=== PATIENT | female | born 1955 | race Caucasian/White ===

== ENCOUNTER 2017-10-24 12:03 | Inpatient (IN) | payer OTHER ==
[~2017-10-24] VITALS: Ht 154.9 cm; Wt 70.3 kg
[2017-10-24 12:17] VITALS: BP 158/75
[2017-10-24 12:28] LABS: PROTIME 108.5 Seconds (9.20-11.50)
[2017-10-24 12:30] LABS: INR 11.6
[2017-10-24 12:45] LABS: HEMATOCRIT 39.9 % (37.0-47.0); HEMOGLOBIN 13.4 gm/dL (12.0-15.0); MCHC 33.7 g/dL (28.0-37.0); MCV 79.9 fL (80.0-100.0); MPV 7.3 fl. (7.2-11.1); NUCLEATED RBCS 0 /100WBC; PLATELET COUNT* 388 thou/uL (150-400); RBC 4.99 mil/uL (4.20-5.00); RDW-CV 14.4 % (10.5-14.5); WBC 9.8 thou/uL (4.0-11.0)
[2017-10-24 12:52] LABS: CALCIUM 8.3 mg/dL (8.5-10.1)
[2017-10-24 12:53] LABS: POTASSIUM 2.3 mmol/L (3.5-5.1)
[2017-10-24 12:57] LABS: ALBUMIN 3.8 g/dL (3.4-5.0); TOTAL BILIRUBIN 0.2 mg/dL (<0.1-1.0); TOTAL PROTEIN 7.4 g/dL (6.4-8.2)
[2017-10-24 13:27] LABS: ABSOLUTE EOSINOPHILS 0.2 thou/uL (0.0-0.7); ABSOLUTE MONOCYTES 1.2 thou/uL (0.0-1.2); ABSOLUTE NEUTROPHILS 5.4 thou/uL (1.6-8.1); MYELOCYTES 1 %; PROMYELOCYTES 1 %
[2017-10-24 13:28] LABS: PLATELET ESTIMATE ADEQUATE
[2017-10-24 13:29] LABS: HYPOCHROMASIA Occasional
[2017-10-24] MEDS ORDERED: VENTOLIN HFA 1818 GM INH (14:49)
[2017-10-24] MEDS ORDERED: IMURAN 50MG TAB50 M1 PO (14:50)
[2017-10-24] MEDS ORDERED: VITAMINC500 PO (14:50)
[2017-10-24] MEDS ORDERED: ENTOCORT EC 3 MG3 MG PO (14:51)
[2017-10-24] MEDS ORDERED: SYMBICORT160 MCG/4. INH (14:52)
[2017-10-24] MEDS ORDERED: FLEXERIL PO (14:53)
[2017-10-24] MEDS ORDERED: BENTYL 10 MG CA10 MG PO (14:54)
[2017-10-24] MEDS ORDERED: ERGOCALCIF8000 UNIT/ PO (14:56)
[2017-10-24] MEDS ORDERED: CYMBALTA30 MG PO (14:56)
[2017-10-24] MEDS ORDERED: FERRETTS325 MG PO (14:57)
[2017-10-24] MEDS ORDERED: FISH OIL 1,001000 M2 PO (14:57)
[2017-10-24] MEDS ORDERED: LEVSIN0.125 MG PO (14:58)
[2017-10-24] MEDS ORDERED: HYDROCODONE-AP1 EAC6 PO (14:58)
[2017-10-24] MEDS ORDERED: SYNTHROID75 MCG PO (14:58)
[2017-10-24] MEDS ORDERED: ATIVAN0.5 MG PO (14:59)
[2017-10-24] MEDS ORDERED: MELATONIN3 MG PO (15:01)
[2017-10-24] MEDS ORDERED: MAGONATE54 MG/5 ML PO (15:01)
[2017-10-24] MEDS ORDERED: ASACOL HD800 MG PO (15:01)
[2017-10-24] MEDS ORDERED: TOPROL XL25 MG PO (15:02)
[2017-10-24] MEDS ORDERED: NASONEX17 GM NASAL (15:02)
[2017-10-24] MEDS ORDERED: SINGULAIR 10 MG10 M1 PO (15:02)
[2017-10-24] MEDS ORDERED: NITROGLYCERIN0.4 MG SUBLING (15:03)
[2017-10-24] MEDS ORDERED: ONDANSETRON HCL4 M2 PO (15:03)
[2017-10-24] MEDS ORDERED: OMEPRAZOLE 20 M20 M1 PO (15:03)
[2017-10-24] MEDS ORDERED: POTASSIUM20 PO (15:04)
[2017-10-24] MEDS ORDERED: ALDACTONE50 MG PO (15:04)
[2017-10-24] MEDS ORDERED: TRAZODONE HCL100 MG PO (15:05)
[2017-10-24] MEDS ORDERED: TOPAMAX50 MG PO (15:05)
[2017-10-24] MEDS ORDERED: COUMADIN 1MG TAB1 M1 PO (15:08)
[2017-10-24] MEDS ORDERED: VERAPAMIL E.R240 M1 PO (15:08)
[2017-10-24] MEDS ORDERED: PREDNISONE 10 M10 MG PO (15:09)
[2017-10-24 15:36] VITALS: BP 121/79
[2017-10-24 15:43] LABS: URINE BILIRUBIN NEGATIVE (Negative); URINE BLOOD NEGATIVE (Negative); URINE CLARITY CLEAR; URINE COLOR YELLOW; URINE GLUCOSE-RANDOM NEGATIVE (Negative); URINE KETONES NEGATIVE (Negative); URINE LEUKOCYTES-REFLEX TRACE (Negative); URINE NITRITE-REFLEX NEGATIVE (Negative); URINE PROTEIN NEGATIVE (Negative); URINE UROBILINOGEN 0.2 E.U./dl (0.2-1.0)
[2017-10-24 16:04] VITALS: BP 131/75
[2017-10-24 16:17] LABS: BACTERIA-REFLEX None Seen /HPF (None Seen); CASTS None Seen /LPF (None Seen); CRYSTALS None Seen /LPF (None Seen); SQUAMOUS 4-10 Moderate /LPF (0-3); URINE RBC None Seen /HPF (0-2); URINE WBC-REFLEX 0-5 Rare /HPF (0-5)
--- NOTE | 2017-10-24 17:32 | EKG ---
[place] [address] ELECTROCARDIOGRAM REPORT Name: KRISTAL FOX Room: [address] ADM IN .R.#: [id number] Admission: 10/24/17 Attend Phys: Otilia Mcguire MD Discharge: Date of : 53 Report #: [id number] THIS REPORT FOR: //name// [facility] ED Test Date: 2017-10-24 Test Time: 13:42:50 Pat Name: KRISTAL FOX Department: Room: [facility] Gender: F Video Systems Engineer: : 1955 Requested By: Nigel Hopkins Order Number: [id number] MD: Cm Bermeo Measurements Intervals [place] Rate: 69 P: 70 ID: [id number] QRS: 83 QRSD: 96 T: 73 QT: 395 QTc: 423 Interpretive Statements Sinus rhythm nonspecific t wave changes Borderline right axis deviation Compared to ECG 06/27/2008 14:08:16 Prolonged QT interval no longer present Electronically Signed On 10-24-2017 17:32:08 ACQUISITION COST ESTIMATOR by Cm Bermeo [email or web address] <ELECTRONICALLY SIGNED> By: Cm Bermeo MD, [facility] 10/24/17 1732 134 134 Cm Bermeo MD, [facility] /EPI
--- NOTE | 2017-10-24 18:19 | NUR ---
PATIENT CAME UP FROM THE ER TODAY VIA CART WITH SON IN STABLE CONDITION. VITAL SIGNS ARE STABLE ON ROOM AIR. PATIENT IS UP AD BILLY IN ROOM. COMPLAINS OF A HEADACHE. IV IN LEFT FOREARM SALINE LOCKED. ADMISSION ASSESSMENT AND EDICATION DONE UPON ARRIVAL. CALL LIGHT IS IN REACH, WILL CONTINUE TO MONITOR.
--- NOTE | 2017-10-24 21:00 | NUR ---
CONSULTED TO PLACE PICC FOR PT ON 3W ORDERED. CONSENT OBTAINED AND SIGNED. PT EXPLAINED RISK WELL BENEFIT OF PICC PLACEMENT TO INCLUDE RISK OF INFECTION AND DVT RISK. PT ASSESSED WITH ULTRASOUND AND JAIME BASILIC FOUND TO BE WIDELY PATENT. LINE TRIMMED TO 45 CM AND PLACED PER FACILITY POLICY WITH 2 CM EXTERNAL. LINE PLACEMENT CONFIRMED WITH 3CG AND RELEASED FOR IMMEDIATE USE. PT TOLERATED PROCEDURE WELL.
[2017-10-24 21:32] LABS: MAGNESIUM 1.6 mg/dL (1.8-2.4)
[2017-10-24 21:33] LABS: POTASSIUM 3.4 mmol/L (3.5-5.1)
[2017-10-24 21:41] LABS: INR 10.8
[2017-10-25] VITALS: BP 91/43
[2017-10-25 04:51] VITALS: BP 92/52
[2017-10-25 06:34] LABS: HEMATOCRIT 38.2 % (37.0-47.0); HEMOGLOBIN 12.6 gm/dL (12.0-15.0); MCH 26.9 pg (26.0-34.0); MCHC 33.1 g/dL (28.0-37.0); MCV 81.4 fL (80.0-100.0); MPV 7.4 fl. (7.2-11.1); RBC 4.69 mil/uL (4.20-5.00); RDW-CV 14.9 % (10.5-14.5); WBC 9.8 thou/uL (4.0-11.0)
[2017-10-25 06:42] LABS: PROTIME 61.3 Seconds (9.20-11.50)
[2017-10-25 06:43] LABS: INR 6.5
[2017-10-25 06:46] LABS: ALBUMIN 3.1 g/dL (3.4-5.0); CALCIUM 8.1 mg/dL (8.5-10.1); CREATININE 1.1 mg/dL (0.6-1.3); MAGNESIUM 1.7 mg/dL (1.8-2.4); POTASSIUM 3.7 mmol/L (3.5-5.1); TOTAL BILIRUBIN 0.3 mg/dL (<0.1-1.0); TOTAL PROTEIN 6.6 g/dL (6.4-8.2)
--- NOTE | 2017-10-25 07:02 | NUR ---
PATIENT SLEPT PART OF THE NIGHT. IV PICC LINE WAS PLACED AT BEDSIDE LAST NIGHT. DRESSING WAS SATURATED WITH BLOOD AND WAS CHANGED ONCE THIS SHIFT. INR IS DOWN TO 6.5 THIS MORNING. WILL CONTINUE TO MONITOR.
[2017-10-25 07:35] VITALS: BP 90/56
[2017-10-25 16:17] VITALS: BP 111/56
--- NOTE | 2017-10-25 17:41 | NUR ---
PATIENT A&OX4, ROOM AIR, PICC LINE RIGHT UPPER ARM DOUBLE LUMEN SALINE LOCK. DRESSING CHANGED, NO ISSUES. UP AD BILLY, STEADY GAIT. NO C/O PAIN/N/V. NO OTHER CONCERNS AT THIS TIME. APPROPRIATE AND COOPORATIVE WITH CARE.
[2017-10-26] VITALS: BP 112/61
[2017-10-26 05:41] LABS: HEMATOCRIT 37.1 % (37.0-47.0); HEMOGLOBIN 12.5 gm/dL (12.0-15.0); MCH 27.1 pg (26.0-34.0); MCHC 33.6 g/dL (28.0-37.0); MCV 80.6 fL (80.0-100.0); MPV 6.9 fl. (7.2-11.1); RBC 4.6 mil/uL (4.20-5.00); RDW-CV 14.8 % (10.5-14.5); WBC 13.8 thou/uL (4.0-11.0)
--- NOTE | 2017-10-26 06:02 | NUR ---
PATIENT SLEPT MOST OF THE NIGHT. PATIENT HAD NO COMPLAINTS OF PAIN. PATIENT IS POSSIBLY GOING HOME TODAY. WILL CONTINUE TO MONITOR.
[2017-10-26 06:17] LABS: PROTIME 21.1 Seconds (9.20-11.50)
[2017-10-26 06:23] LABS: INR 2.2
[2017-10-26 07:50] VITALS: BP 105/69
--- NOTE | 2017-10-26 16:22 | NUR ---
PATIENT A&OX4, ROOM AIR, RIGHT UPPER ARM PICC DOUBLE LUMEN, LFUSHE S AND DRAWS FINE. UP AD BILLY, STEADY GIAT. NO C/O PAIN/N/V. NO OTHER CONCERNS AT THIS TIME. APPROPRIATE AND COOPORATIVE WITH CARE.
[2017-10-26 16:34] VITALS: BP 90/46
[2017-10-26 23:38] VITALS: BP 114/57
--- NOTE | 2017-10-27 05:38 | NUR ---
PATIENT SLEPT MOST OF THE NIGHT. PATIENT HAD NO COMPLAINTS OF PAIN. PATIENT IS SUPPOSED TO BE DISCHARGED HOME TODAY. WILL CONTINUE TO MONITOR.
[2017-10-27 09:30] VITALS: BP 100/55
--- NOTE | 2017-10-27 12:07 | NUR ---
SW met with pt to discuss dc planning/transportation needs. Pt said she did not need any assistance and that her dtr is going to pick her up today. No other needs or concerns at this time.
[2017-10-27 13:10] VITALS: BP 100/55
[2017-10-27 13:29] VITALS: BP 100/55
[2017-10-27 13:41] VITALS: BP 100/55
--- NOTE | 2017-10-27 14:15 | NUR ---
PATIENT IS ALERT AND ORIENTED TODAY VERY PLEASANT. VITAL SIGNS STABLE ON ROOM AIR. PATIENT IS BEING DISCHARGED TO HOME WITH A PICC LINE IN RIGHT UPPER ARM FOR POSTASSIUM INFUSIONS. EXPLAINED TO PATIENT THAT APPOINTMENT NEEDS TO BE MADE WITH PRIMARY CARE, GI AND VASCULAR SURGERY DOCTORS SOON POSSIBLE. PATIENT STATED UNDERSTANDING. PATIENT LEFT WITH DISCHAGE INSTRUCTIONS WITH QUESTIONS ANSWERED. LEFT VIA WHEEL CHAIR WITH NURSING STAFF TO GO HOME WITH DAUGHTER.
[2017-10-27 14:20] VITALS: BP 100/55
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
--- NOTE | 2017-11-25 14:48 | EKG ---
[place] [address] ELECTROCARDIOGRAM REPORT Name: KRISTAL FOX Room: [address] IN ..#: [id number] Admission: 10/24/17 Attend Phys: Otilia Mcguire MD Discharge: 10/27/17 Date of : 53 Report #: [id number] THIS REPORT FOR: //name// [facility] Test Date: 2017-11-25 Test Time: 09:51:46 Pat Name: KRISTAL FOX Department: Room: [address] Gender: F Drywall Mechanic: JRLIDA : 1955 Requested By: Stanislaw Dimas Order Number: [id number] Eliezer MD: Matt Sandra Measurements Intervals [place] Rate: 72 P: 31 [place]: 155 QRS: 89 QRSD: 94 T: 74 QT: 377 QTc: 413 Interpretive Statements Sinus rhythm Borderline right axis deviation Low voltage, precordial leads Baseline wander in lead(s) I,III,aVL Compared to ECG 11/24/2017 10:24:05 Low QRS voltage now present Early repolarization now present Possible ischemia now present Electronically Signed On 11-25-2017 14:48:32 CDT by Matt Sandra [email or web address] <ELECTRONICALLY SIGNED> By: Matt Sandra MD, FACC 11/25/17 1448 0951 0951 Matt Sandra MD, FACC /EPI
== END 2017-10-27 14:00 | disposition home or self-care (01) | DRG 813 ==
LOC: M.ERS 12:03 → M.3W 14:46 → M.TBA-ER 14:46 → M.3W 15:42
PROVIDERS: Physician Assistant; ADMIT Internal Medicine
PROC: 05HB33Z Insertion of Infusion Device into Right Basilic Vein, Percutaneous Approach (ICD-10-PCS; principal; 2017-10-24)
DX: D68.32 Hemorrhagic disorder due to extrinsic circulating anticoagulants (principal); K50.90 Crohn's disease, unspecified, without complications; D68.59 Other primary thrombophilia; E87.6 Hypokalemia; I10 Essential (primary) hypertension; M19.90 Unspecified osteoarthritis, unspecified site; F39 Unspecified mood [affective] disorder; E03.9 Hypothyroidism, unspecified; K52.9 Noninfective gastroenteritis and colitis, unspecified; G43.909 Migraine, unspecified, not intractable, without status migrainosus; F32.9 Major depressive disorder, single episode, unspecified; J45.909 Unspecified asthma, uncomplicated; Z90.49 Acquired absence of other specified parts of digestive tract; Z88.8 Allergy status to other drugs, medicaments and biological substances; Z82.49 Family history of ischemic heart disease and other diseases of the circulatory system; Z83.3 Family history of diabetes mellitus; Z83.6 Family history of other diseases of the respiratory system; Z81.8 Family history of other mental and behavioral disorders; Z86.711 Personal history of pulmonary embolism; Z86.718 Personal history of other venous thrombosis and embolism; Z79.899 Other long term (current) drug therapy

== ENCOUNTER 2017-11-10 15:23 | Inpatient (IN) | payer OTHER ==
[~2017-11-10] VITALS: Ht 157.5 cm; Wt 67.6 kg
[2017-11-10 15:23] VITALS: BP 140/109
[~2017-11-10 15:23] MED LIST: ALDACTONE50 MG PO; ASACOL HD800 MG PO; ATIVAN0.5 MG PO; BENTYL 10 MG CA10 MG PO; COUMADIN 1MG TAB1 M1 PO; CYMBALTA30 MG PO; ENTOCORT EC 3 MG3 MG PO; ERGOCALCIF8000 UNIT/ PO; FERRETTS325 MG PO; FISH OIL 1,001000 M2 PO; FLEXERIL PO; HYDROCODONE-AP1 EAC6 PO; IMURAN 50MG TAB50 M1 PO; LEVSIN0.125 MG PO; MAGONATE54 MG/5 ML PO; MELATONIN3 MG PO; NASONEX17 GM NASAL; NITROGLYCERIN0.4 MG SUBLING; OMEPRAZOLE 20 M20 M1 PO; ONDANSETRON HCL4 M2 PO; POTASSIUM20 PO; PREDNISONE 10 M10 MG PO; SINGULAIR 10 MG10 M1 PO; SYMBICORT160 MCG/4. INH; SYNTHROID75 MCG PO; TOPAMAX50 MG PO; TOPROL XL25 MG PO; TRAZODONE HCL100 MG PO; VENTOLIN HFA 1818 GM INH; VERAPAMIL E.R240 M1 PO; VITAMINC500 PO
[2017-11-10 16:02] LABS: URINE BILIRUBIN NEGATIVE (Negative); URINE BLOOD 2+ (Negative); URINE CLARITY CLEAR; URINE COLOR YELLOW; URINE GLUCOSE-RANDOM NEGATIVE (Negative); URINE KETONES NEGATIVE (Negative); URINE LEUKOCYTES-REFLEX NEGATIVE (Negative); URINE NITRITE-REFLEX NEGATIVE (Negative); URINE PROTEIN 3+ (Negative); URINE SPECIFIC GRAVITY >= 1.030 (1.005-1.030); URINE UROBILINOGEN 0.2 E.U./dl (0.2-1.0)
[2017-11-10 16:10] LABS: SQUAMOUS >10 Many /LPF (0-3)
[2017-11-10 16:11] LABS: HYALINE CASTS 4-10 Moderate /LPF (None Seen)
[2017-11-10 16:12] LABS: BACTERIA-REFLEX 1-9 Few /HPF (None Seen); CRYSTALS None Seen /LPF (None Seen); MUCUS 0-3 Light strn/LPF (None Seen); URINE RBC 0-2 Rare /HPF (0-2); URINE WBC-REFLEX 0-5 Rare /HPF (0-5)
[2017-11-10 16:26] LABS: HEMATOCRIT 34.1 % (37.0-47.0); HEMOGLOBIN 11.5 gm/dL (12.0-15.0); MCHC 33.9 g/dL (28.0-37.0); MCV 79.8 fL (80.0-100.0); NUCLEATED RBCS 0 /100WBC; RBC 4.27 mil/uL (4.20-5.00); RDW-CV 15.3 % (10.5-14.5); WBC 14.1 thou/uL (4.0-11.0)
[2017-11-10 16:27] LABS: INFLUENZA A ANTIGEN None Detected (None Detect); INFLUENZA B ANTIGEN None Detected (None Detect)
[2017-11-10 16:33] LABS: ANION GAP 14 mmol/L (7-16); BUN 20 mg/dL (7-18); CALCIUM 8.2 mg/dL (8.5-10.1); CHLORIDE 99 mmol/L (98-107); CO2 22 mmol/L (21-32); CREATININE 1.4 mg/dL (0.6-1.3); GLUCOSE 175 mg/dL (70-99); SODIUM 135 mmol/L (136-145)
[2017-11-10 16:34] LABS: POTASSIUM 2.4 mmol/L (3.5-5.1)
[2017-11-10 16:47] LABS: ALBUMIN 2.7 g/dL (3.4-5.0); ALKALINE PHOSPHATASE 100 U/L (46-116); LIPASE 55 U/L (73-393); SGOT 37 U/L (15-37); SGPT 28 U/L (30-65); TOTAL BILIRUBIN 1.2 mg/dL (<0.1-1.0); TROPONIN-I LEVEL <0.06 ng/mL (<0.06)
[2017-11-10 17:01] LABS: ABSOLUTE LYMPHOCYTES 0.4 thou/uL (0.8-5.3); ABSOLUTE MONOCYTES 0.7 thou/uL (0.0-1.2); ATYPICAL LYMPHS 1 %
[2017-11-10 17:02] LABS: PLATELET ESTIMATE ADEQUATE
[2017-11-10 17:03] LABS: CLUMPED PLTS OCCASIONAL
--- NOTE | 2017-11-10 17:17 | NUR ---
PT'S PICC LINE DRESSING WAS REMOVED, CLEANSED AND REDRESSED PER PT REQUEST.
[2017-11-10 17:21] LABS: PLATELET COUNT* 160 thou/uL (150-400)
[2017-11-10 17:53] LABS: APTT 28.6 Seconds (25.0-31.3); INR 1.2; PROTIME 11.6 Seconds (9.20-11.50)
--- NOTE | 2017-11-10 19:18 | NUR ---
PT AMBULATORY TO BATHROOM ON ARRIVAL BACK TO THE E.R. CALL CENTER TRAINER HAS TALKED WITH PT AND TOLD HER PLAN OF HER BEING ADMITTED, PT STATES UNDERSTANDING
[2017-11-10 20:05] LABS: BE -6.6 mmol/L (-2 to +3); HCO3 15.6 mmol/L (22.0-26.0); PCO2 22.5 mmHg (35.0-45.0); pH 7.459 (7.340-7.450)
[2017-11-10 20:06] LABS: PO2 50.6 mmHg (75.0-100.0)
[2017-11-10 21:16] VITALS: BP 134/60
[2017-11-10 21:40] VITALS: BP 113/60
[2017-11-11] VITALS: BP 121/60
[2017-11-11 04:01] VITALS: BP 125/76
--- NOTE | 2017-11-11 06:04 | NUR ---
Pt arrived from ED at 2140. RR 36, presenting with dry cough following transfer to bed from cart. Anxious, reports she takes meds for anxiety at home and requesting that they be restarted. O2 sats 77-81% on 4L, increased O2 to 6L. O2 sats improved to mid 80s, called RT for HFC and resp tx. O2 sats up to mid 90s on 8L per HFC. Physician updated on pt's status 0010, 0130, and 0345; orders received on each occasion (see MAR, EMR). Pt eventually placed on NRB mask to maintain O2 sats in low to mid-90s. Pt has jeff, and also had output of 1275 mls following dose of IV furosemide. IVF were decreased, and eventually dc'd. Lactic acid levels have fluctuated, but currently on downward trend. RR rate remains at 36-40, but pt appears to be resting better than previously in shift. HR was 120s, and now low 90s per monitor. BP stable, afebrile. Will continue to monitor.
[2017-11-11 06:12] LABS: HEMATOCRIT 31.8 % (37.0-47.0); HEMOGLOBIN 10.5 gm/dL (12.0-15.0); MCH 26.7 pg (26.0-34.0); MCHC 33.2 g/dL (28.0-37.0); MCV 80.7 fL (80.0-100.0); MPV 8.4 fl. (7.2-11.1); RBC 3.94 mil/uL (4.20-5.00); RDW-CV 15.3 % (10.5-14.5); WBC 11.5 thou/uL (4.0-11.0)
[2017-11-11 06:21] LABS: ALBUMIN 2.4 g/dL (3.4-5.0); CALCIUM 7.6 mg/dL (8.5-10.1); CREATININE 1.3 mg/dL (0.6-1.3); TOTAL BILIRUBIN 1.4 mg/dL (<0.1-1.0); TOTAL PROTEIN 5.5 g/dL (6.4-8.2)
[2017-11-11 06:23] LABS: POTASSIUM 2.7 mmol/L (3.5-5.1)
[2017-11-11 07:15] LABS: HEMOGLOBIN 11.6 gm/dL (12.0-15.0); MCHC 34.1 g/dL (28.0-37.0); MCV 79.4 fL (80.0-100.0); RBC 4.28 mil/uL (4.20-5.00); RDW-CV 15.5 % (10.5-14.5); WBC 12.4 thou/uL (4.0-11.0)
[2017-11-11 07:32] LABS: ALBUMIN 2.7 g/dL (3.4-5.0); CALCIUM 7.8 mg/dL (8.5-10.1); CREATININE 1.4 mg/dL (0.6-1.3); MAGNESIUM 1.8 mg/dL (1.8-2.4); TOTAL BILIRUBIN 1.6 mg/dL (<0.1-1.0); TOTAL PROTEIN 6.3 g/dL (6.4-8.2)
[2017-11-11 07:36] LABS: POTASSIUM 2.5 mmol/L (3.5-5.1)
[2017-11-11 08:00] VITALS: BP 116/78
[2017-11-11 12:00] VITALS: BP 115/65
--- NOTE | 2017-11-11 13:35 | NUR ---
CM ASSESSMENT: Pt is A&O. Resides at home with family (2 grandsons, 1 dtr and her , and 1 son). Pt is independent with ADLs. Pt has home nebulizer and inhalers, no other DME. Hx of in [place]. No hx of SNF. Pt's goal is to return home once medically stable. Following for dc needs.
[2017-11-11 14:52] LABS: CALCIUM 7.8 mg/dL (8.5-10.1); CREATININE 1.3 mg/dL (0.6-1.3)
[2017-11-11 14:58] LABS: POTASSIUM 2.7 mmol/L (3.5-5.1)
--- NOTE | 2017-11-11 15:20 | EKG ---
[place] [address] ELECTROCARDIOGRAM REPORT Name: KRISTAL FOX Room: [address] ADM IN .R.#: [id number] Admission: 11/10/17 Attend Phys: Otilia Mcguire MD Discharge: Date of : 53 Report #: [id number] THIS REPORT FOR: //name// [facility] ED Test Date: 2017-11-10 Test Time: 16:10:25 Pat Name: KRISTAL FOX Department: Room: [facility] Gender: F Intake Assessor: [facility] : 1955 Requested By: Gabriela Herring Order Number: [id number] MD: Yonny Ruby Measurements Intervals [place] Rate: 114 P: 31 MO: 146 QRS: 91 QRSD: 87 T: -2 QT: 287 QTc: 396 Interpretive Statements Sinus tachycardia Right axis deviation Borderline repolarization abnormality Baseline wander in lead(s) V3 Compared to ECG 10/24/2017 13:42:50 Sinus rhythm no longer present T-wave abnormality no longer present Electronically Signed On 11-11-2017 15:20:12 HEALTH CARE SANITARY TECHNICIAN by Yonny Ruby [email or web address] <ELECTRONICALLY SIGNED> By: Yonny Ruby MD, FAC 11/11/17 1520 1610 1610 Yonny Ruby MD, FAC /EPI
[2017-11-11 16:00] VITALS: BP 101/66
[2017-11-11 20:00] VITALS: BP 116/68
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
[2017-11-12] VITALS (8 sets, daily range): BP systolic 88–137; BP diastolic 45–83
[2017-11-12 02:43] LABS: HEMATOCRIT 31.5 % (37.0-47.0); HEMOGLOBIN 10.5 gm/dL (12.0-15.0); MCH 27.1 pg (26.0-34.0); MCHC 33.5 g/dL (28.0-37.0); MCV 80.9 fL (80.0-100.0); MPV 8.4 fl. (7.2-11.1); RBC 3.89 mil/uL (4.20-5.00); RDW-CV 15.8 % (10.5-14.5); WBC 16.5 thou/uL (4.0-11.0)
[2017-11-12 02:51] LABS: MAGNESIUM 2.3 mg/dL (1.8-2.4)
[2017-11-12 03:01] LABS: CALCIUM 8.3 mg/dL (8.5-10.1); CREATININE 1.2 mg/dL (0.6-1.3)
--- NOTE | 2017-11-12 04:18 | NUR ---
PICC LINE D/C'ED APPROX AT 0000, PRESSURE HELD FOR APPROX 10 MINUTES WITH NO ACTICE BLEEDING NOTED, 4X4 AND COBAN UTILIZED TO DRESSING AFTER REMOVAL.
--- NOTE | 2017-11-12 10:30 | NUR ---
RECEIVED REPORT. ASSUMED CARE OF PT AT 0730. PT A&O X4, VERY ANXIOUS. VSS, EXCEPT RR ARE 39. 02 SAT 90% ON HF NC AT 13L, WITH DESATURATIONS INTO THE 80'S DURING ANXIETY AND TALKING. PT REASSURED AND INSTRUCTED TO BREATH SLOWLY AND DEEPLY THROUGH HER NOSE. THERAPEUTIC COMMUNICATION INITIATED; PT DIRECTED TO THINK OF SOMETHING POSITIVE. PT RESPONDED WELL AND RR SLOWED TO 25, O2 SATS REMAINED 89-93%. CONTINUOUS O2 MONITORING IN PLACE. RT CALLED TO REASSESS NEED FOR BIPAP. [employer] OFFICER IN PLACE TRACING SR. AM ASSESSMENT AND VITALS COMPLETED CHARTED. IV PATENT AND INFUSING. PT REPORTS CHEST AND BELLY PAIN - RECEIVED PO PAIN MEDICATION WITH PARTIAL RELIEF. PRN MEDICATION FOR ANXIETY GIVEN AT PT'S REQUEST. PT UP TO BEDSIDE COMMODE THIS AM FOR SMALL BM; PT STATES "IT FEELS GOOD TO GET OUT OF THE BED". DOS SANTOS IN PLACE TO DD, URINE IS YELLOW. PT INFORMED OF PLAN OF CARE, PT COMMUNICATES UNDERSTANDING. FALL PRECAUTIONS ARE IN PLACE. CALL LIGHT IS WITHIN REACH. WILL CONTINUE TO MONITOR.
[2017-11-12 12:25] LABS: BE -3.5 mmol/L (-2 to +3); PCO2 26.9 mmHg (35.0-45.0); pH 7.466 (7.340-7.450)
[2017-11-12 12:45] LABS: PO2 59.9 mmHg (75.0-100.0)
--- NOTE | 2017-11-12 13:30 | NUR ---
LAB CALLED WITH CRITICAL PO2 OF 59.9. RESULTS CALLED AND TOLD TO DR. MOFFETT. ORDERS RECEIVED FOR ADDITIONAL ABG'S IN THE MORNING. PT HAS CONTINUED TO BE ANXIOUS AND HAVE WORK OF BREATHING/HYPERVENTALATION. REASSURANCE GIVEN TO PT RELIEF. DR. HAMMER AND RT AWARE; CTA OF CHEST ORDERED TO R/O PE. PT HAS BEEN ON AND OFF THE BIPAP, AND WEARING 13L HF NC WHEN OFF BIPAP. DAUGHTER SHELDON CALLED WITH UPDATE OF PT. PT NPO FOR CTA SCAN. PT INFORMED OF UPCOMING SCAN. CALL LIGHT IS WITHIN REACH. WILL CONTINUE TO MONITOR.
--- NOTE | 2017-11-12 18:12 | 2DMMODE ---
[place] [address] 2 D/M-MODE ECHOCARDIOGRAM Name: KRISTAL FOX Room: [address] IN [facility]#: [id number] Admission: 11/10/17 Attend Phys: Otilia Mcguire, Discharge: Date of : 53 Date of Service: 11/12/17 181 Report #: [id number] THIS REPORT FOR: //name// APPROVED REPORT Study performed: 11/11/2017 15:40:16 EXAM: Comprehensive 2D, Doppler, and color-flow Echocardiogram Patient Location: In-Patient Room #: 221 Status: routine BSA: 1.69 HR: 90 bpm BP: 115/65 mmHg Rhythm: NSR Other Information Study Quality: Good Indications Congestive Heart Failure COPD Sepsis 2D Dimensions LVEF(%): 67.76 (>50%) IVSd: 11.17 (7-11mm) LVOT Diam: 17.88 (18-24mm) LVDd: 41.27 mm PWd: 9.88 (7-11mm) Ascending Ao: 36.23 (22-36mm) LVDs: 25.87 (25-40mm) Aortic Root: 31.55 mm Lucas's LVEF: 67.76 % Volumes Left Atrial Volume (Systole) LA ESV Index: 21.10 mL/m2 Aortic Valve AoV Peak Nikhil.: 1.20 m/s AO Peak Gr.: 5.74 mmHg LVOT Max P.06 mmHg AO Mean Gr.: 3.09 mmHg LVOT Mean P.95 mmHg LVOT Max V: 1.01 m/s AO V2 VTI: 19.91 cm LVOT Mean V: 0.64 m/s SRAVANTHI (VTI): 2.22 cm2 LVOT V1 VTI: 17.61 [place] [address] 2 D/M-MODE ECHOCARDIOGRAM Name: KRISTAL FOX Room: [address] IN .R.#: [id number] Admission: 11/10/17 Attend Phys: Otilia Mcguire, Discharge: Date of : 53 Date of Service: 11/12/17 1811 Report #: [id number] Mitral Valve E/A Ratio: 0.90 MV Decel. Time: 196.83 ms MV E Max Nikhil.: 0.65 m/s MV PHT: 57.08 ms MVA (PHT): 3.85 cm2 TDI E/Lateral E': 7.22 E/Medial E': 7.22 Medial E' Nikhil.: 0.09 m/s Lateral E' Nikhil.: 0.09 m/s Pulmonary Valve PV Peak Nikhil.: 0.97 m/s PV Peak Gr.: 3.78 mmHg Tricuspid Valve TR Peak Gr.: 19.79 mmHg RVSP: 25.00 mmHg Left Ventricle The left ventricle is normal size. There is normal LV segmental wall motion. There is normal left ventricular wall thickness. Left ventricular systolic function is normal. The left ventricular ejection fraction is within the normal range. LVEF is 60-65%. Grade I - abnormal relaxation pattern. Right Ventricle The right ventricle is normal size. The right ventricular systolic function is normal. Atria The left atrium size is normal. The right atrium size is normal. Aortic Valve The aortic valve is normal in structure. No aortic regurgitation is present. There is no aortic valvular stenosis. Mitral Valve The mitral valve is normal in structure. There is no mitral valve regurgitation noted. No evidence of mitral valve stenosis. Tricuspid Valve The tricuspid valve is normal in structure. Trace tricuspid regurgitation. The RVSP is ___25____ mmHg[place] [address] 2 D/M-MODE ECHOCARDIOGRAM Name: KRISTAL FOX Room: [address] IN [facility]#: [id number] Admission: 11/10/17 Attend Phys: Otilia Mcguire, Discharge: Date of : 53 Date of Service: 11/12/17 1811 Report #: [id number] The pulmonary valve is normal in structure. There is no pulmonic valvular regurgitation. Great Vessels The aortic root is normal in size. IVC is normal in size and collapses with >50% inspiration Pericardium There is no pericardial effusion. <Conclusion> The left ventricle is normal size. There is normal left ventricular wall thickness. Left ventricular systolic function is normal. The left ventricular ejection fraction is within the normal range. LVEF is 60-65%. Grade I - abnormal relaxation pattern. The right ventricle is normal size. The left atrium size is normal. The aortic valve is normal in structure. The mitral valve is normal in structure. The tricuspid valve is normal in structure. Trace tricuspid regurgitation. The RVSP is ___25____ mmHg. IVC is normal in size and collapses with >50% inspiration There is normal LV segmental wall motion. <ELECTRONICALLY SIGNED> By: Stanislaw Dimas MD, FACC 11/12/171810 10 10 Stanislaw Dimas MD, FACC /INF
--- NOTE | 2017-11-12 18:59 | NUR ---
VSS BUT PT HAS REMAINED TACHYPNEIC WITH DESATURATIONS INTO THE 80'S. CONTINUOUS PULSE OX REMAINS IN PLACE. MULTIMEDIA JOURNALIST IN PLACE WITH NO CHANGES THIS SHIFT. IV PATENT AND INFUSING. PT COMPLETED CTA OF CHEST, SEE RESULTS. DR HAMMER AWARE OF RESULTS AND DISCUSSED RESULTS WITH PT; PT TO BE TRANSFERED TO ICU PER DR. HAMMER'S ORDERS FOR INTUBATION AND PLACEMENT ON THE VENTILATOR. PT AGREEABLE TO THIS. REPORT CALLED TO NICHOLAS IN ICU. ALL BELONGINGS GATHERED AND SENT WITH THE PT. PT TRANSFERED BY BED WITH NURSING STAFF TO BED 4 IN ICU. DAUGHTER SHELDON CALLED AND INFORMED OF STATUS/ROOM CHANGE.
--- NOTE | 2017-11-12 19:00 | NUR ---
PATIENT INTUBATED UPON ARRIVAL TO ICU. VSS AT THIS TIME. PROPOFOL DRIP STARTED. AWAITING CONFIRMATION FOR PLACEMENT OF ET TUBE AND OG. WILL CONTINUE TO MONITOR. REPORT TO BE GIVEN TO BLOCKER AND CUTTER CONTACT LENS
[2017-11-12 20:14] LABS: BE -5.7 mmol/L (-2 to +3); HCO3 19.6 mmol/L (22.0-26.0); PCO2 37.4 mmHg (35.0-45.0); pH 7.337 (7.340-7.450)
[2017-11-12 20:19] LABS: PO2 186.6 mmHg (75.0-100.0)
[2017-11-12 20:40] LABS: CALCIUM 7.4 mg/dL (8.5-10.1); POTASSIUM 3.8 mmol/L (3.5-5.1)
--- NOTE | 2017-11-12 21:00 | NUR ---
SPOKE WITH DR HAMMER VIA TELEPHONE, UPDATED ABG RESULTS, B/P SOFT MAINTAINING MAP =>60, KUB RESULTS, AND PORABLE CXR RESULTS, NEW ORDERS RECEIVED LEVOPHED IV GTT TITRATION PER PROTOCOL FOR MAP <60 PRN, OK TO USE OG TUBE, OG TO LIS, AND NO CHANGE IN POSITONING OF ETT NEEDED. WILL INITATED ORDERS, AND CONTINUE TO MONITOR
[2017-11-13] VITALS (13 sets, daily range): BP systolic 91–133; BP diastolic 47–85
[2017-11-13 05:12] LABS: BE -4.1 mmol/L (-2 to +3); HCO3 20.1 mmol/L (22.0-26.0); pH 7.402 (7.340-7.450)
[2017-11-13 05:14] LABS: PO2 129.2 mmHg (75.0-100.0)
[2017-11-13 05:38] LABS: HEMATOCRIT 27.3 % (37.0-47.0); HEMOGLOBIN 9.4 gm/dL (12.0-15.0); MCH 27.6 pg (26.0-34.0); MCHC 34.7 g/dL (28.0-37.0); MCV 79.6 fL (80.0-100.0); MPV 8.8 fl. (7.2-11.1); RBC 3.43 mil/uL (4.20-5.00); WBC 14.1 thou/uL (4.0-11.0)
[2017-11-13 05:50] LABS: ALBUMIN 2.1 g/dL (3.4-5.0); CALCIUM 7.1 mg/dL (8.5-10.1); CREATININE 0.9 mg/dL (0.6-1.3); TOTAL PROTEIN 5.1 g/dL (6.4-8.2)
[2017-11-13 09:52] LABS: % SATURATION 18 % (20-39); IRON 39 ug/dL (50-175)
--- NOTE | 2017-11-13 11:32 | CON ---
[address] [address] CONSULTATION Name: KRISTAL FOX Room: [address] IN M.R.#: [id number] Admission: 11/10/17 Attend Phys: Otilia Mcguire MD Discharge: Date of : 53 Report #: [id number] THIS REPORT FOR: //name// CC: Otilia Tee DATE OF SERVICE: 11/12/2017 INFECTIOUS DISEASE CONSULTATION ATTENDING PHYSICIAN: Dr. Mcguire. REASON FOR EVALUATION: Staphylococcus aureus septicemia, likely line related. HISTORY OF PRESENT ILLNESS: Chart reviewed, patient examined. This is a 62-year-old with known history of Crohn's as well as significant COPD, has some vasculopathy, issues with diarrhea, apparently indwelling PICC line, who was admitted via the Emergency Room with complains of more difficulty with breathing, encephalopathy, and was febrile to 101.3 as well. As far the initial workup, did have blood cultures collected, now 2/2 with growth of Staphylococcus aureus. Line was removed. She is in quite a bit of distress at this point, although she has defervesced, empirically started on cefepime and vancomycin. ALLERGIES: ISOPROPYL ALCOHOL, REMICADE. CURRENT MEDICATIONS: Include morphine, methylprednisolone, vancomycin, cefepime, p.r.n. analgesics, antiemetics, anxiolytics. PAST MEDICAL HISTORY: As described above, history of Crohn's with bowel resection x 2, hypertension, arthritis, depression, migraine headaches, asthma, reflux, hypothyroidism, COPD, cardiomyopathy with congestive heart failure, coronary artery disease, osteoarthritis. SOCIAL HISTORY: Nonsmoker, no ethanol. FAMILY HISTORY: Noncontributory. REVIEW OF SYSTEMS: As above. PHYSICAL EXAMINATION: GENERAL: She appears ill, in moderate distress. She is anxious, appears undernourished. VITAL SIGNS: Temperature 97.5, pulse 101, respirations 39, blood pressure 137/83. SKIN: Warm. She is mildly diaphoretic. HEENT: Supplemental oxygen in [place] [address] CONSULTATION Name: KRISTAL FOX Sera Room: [address] IN [facility].#: [id number] Admission: 11/10/17 Attend Phys: Otilia Mcguire MD Discharge: Date of : 53 Report #: [id number] NECK: Supple. LUNGS: Few scattered coarse breath sounds. HEART: Tachycardic, regular. ABDOMEN: Soft, mildly distended, nontender. There are no peritoneal signs. GENITOURINARY AND RECTAL: Deferred. LABORATORY DATA: Initial chest x-ray showed no acute process. Repeat showed development of left basilar infiltrate. Most recent ABG, pH 7.466, PaCO2 of 26.9, pO2 of 59.9 on 13 liters. ProBNP of 485. Blood cultures x 2, growth of Staphylococcus aureus. Prealbumin 8.0. Urinalysis: 0-5 white cells. Influenza antigen was negative. Electrolytes: Sodium 135, potassium 2.4, chloride 99, bicarbonate is 22, anion gap of 14, BUN and creatinine 20 and 1.4, glucose of 175. LFTs are unremarkable with the exception of total bilirubin of 1.2. Total protein 7, albumin of 2.7, estimated GFR of 38. Lactic acid initially was 3.4, repeat was 1.7. ASSESSMENT: Staphylococcus aureus septicemia. Pending results of susceptibilities, also apparent development of a new pneumonitis. We will continue combination therapy at this point including the cefepime and vancomycin. We will repeat the blood cultures. Certainly at risk of having clinical deterioration before improvement. We have to monitor expectantly. We will have to monitor for evidence of other nosocomial related infectious complications as well as noninfectious causes. <ELECTRONICALLY SIGNED> By: Yosvany Palomo MD 11/13/17 1132 1626 [id number] Palomo MD /nt
--- NOTE | 2017-11-13 12:46 | EKG ---
[place] [address] ELECTROCARDIOGRAM REPORT Name: KRISTAL FOX Room: [address] ADM IN M.R.#: [id number] Admission: 11/10/17 Attend Phys: Otilia Mcguire MD Discharge: Date of : 53 Report #: [id number] THIS REPORT FOR: //name// [facility] Test Date: 2017-11-12 Test Time: 15:21:26 Pat Name: KRISTAL FOX Department: Room: [facility] Gender: F Silverware Buffer: : 1955 Requested By: Odalys Simms Order Number: [id number] Eliezer MD: Matt Sandra Measurements Intervals [place] Rate: 96 P: 27 AR: 151 QRS: 71 QRSD: 91 T: 35 QT: 339 QTc: 429 Interpretive Statements Sinus rhythm Low voltage, precordial leads Compared to ECG 11/10/2017 16:10:25 Low QRS voltage now present Sinus tachycardia no longer present Right-axis deviation no longer present Electronically Signed On 11-13-2017 12:46:40 MODEL AND MOLD MAKER by Matt Sandra [email or web address] <ELECTRONICALLY SIGNED> By: Matt Sandra MD, FACC 11/13/17 1246 1521 1521 Matt Sandra MD, FAC /EPI
[2017-11-14] VITALS (12 sets, daily range): BP systolic 88–108; BP diastolic 47–67
[2017-11-14 04:30] LABS: HEMATOCRIT 26.7 % (37.0-47.0); HEMOGLOBIN 9.4 gm/dL (12.0-15.0); MCH 27.9 pg (26.0-34.0); MCHC 35.1 g/dL (28.0-37.0); MCV 79.5 fL (80.0-100.0); MPV 8.4 fl. (7.2-11.1); NUCLEATED RBCS 0 /100WBC; PLATELET COUNT* 218 thou/uL (150-400); RBC 3.36 mil/uL (4.20-5.00); RDW-CV 16.6 % (10.5-14.5); WBC 15.6 thou/uL (4.0-11.0)
[2017-11-14 04:49] LABS: PHOSPHORUS* 2.1 mg/dL (2.5-4.9)
[2017-11-14 04:54] LABS: POTASSIUM 3.4 mmol/L (3.5-5.1); TOTAL PROTEIN 5.5 g/dL (6.4-8.2)
[2017-11-14 05:36] LABS: ABSOLUTE EOSINOPHILS 0.3 thou/uL (0.0-0.7); ABSOLUTE LYMPHOCYTES 1.2 thou/uL (0.8-5.3); ABSOLUTE MONOCYTES 0.8 thou/uL (0.0-1.2); ABSOLUTE NEUTROPHILS 13.3 thou/uL (1.6-8.1); ANISOCYTOSIS 1+; HYPOCHROMASIA 1+; LARGE PLATELETS RARE; METAMYELOCYTES 1 %; MYELOCYTES 4 %; PLATELET ESTIMATE ADEQUATE; POIKILOCYTOSIS 1+; TEARDROPS 1+; TOXIC GRANULATION 1+
[2017-11-14 05:47] LABS: CREATININE 0.7 mg/dL (0.6-1.3)
[2017-11-14 05:48] LABS: CALCIUM 7.1 mg/dL (8.5-10.1); TOTAL BILIRUBIN 1.1 mg/dL (<0.1-1.0)
[2017-11-14 05:49] LABS: ALBUMIN 2.3 g/dL (3.4-5.0)
[2017-11-14 08:00] LABS: BE -3.4 mmol/L (-2 to +3); HCO3 21.2 mmol/L (22.0-26.0); PCO2 36.1 mmHg (35.0-45.0); PO2 65.8 mmHg (75.0-100.0); pH 7.387 (7.340-7.450)
[2017-11-14 09:47] LABS: INR 1.2; PROTIME 11.4 Seconds (9.20-11.50)
--- NOTE | 2017-11-14 12:12 | CON ---
[address] [address] CONSULTATION Name: KRISTAL FOX Room: [address] IN .R.#: [id number] Admission: 11/10/17 Attend Phys: Otilia Mcguire MD Discharge: Date of : 53 Report #: [id number] THIS REPORT FOR: //name// CC: Otilia Keyesgie [facility] DATE OF SERVICE: 11/12/2017 REFERRING PHYSICIAN: Otilia Mcguire MD CHIEF COMPLAINT: Dyspnea. HISTORY OF PRESENT ILLNESS: The patient is a 62-year-old female who is a nonsmoker, she quit several years ago. She does have a history of COPD. She presented to the hospital with fever, chills, nausea, vomiting and progressive weakness. She does have a history of Crohn's disease. The symptoms according to the medical records reveal that this started 4 days prior to admission. The patient is on BiPAP, unable to provide a great deal of information at this time. She is denying nausea, vomiting. She is experiencing some abdominal discomfort and pain that is nonradiating. She has not had any chest pain. She does have shortness of breath. PAST MEDICAL HISTORY: Significant for COPD, Crohn's disease, electrolyte disorder, history of sepsis. ALLERGIES: She is allergic to REMICADE and ISOPROPYL ALCOHOL. SOCIAL HISTORY: She has a history of asthma, depression, hypertension, gastroesophageal reflux disorder, history of blood clots, hypothyroidism, congestive failure, osteoarthritis. REVIEW OF SYSTEMS: System review negative other than what is outlined above. FAMILY HISTORY: Noncontributory for age. MEDICATIONS: Solu-Medrol, vancomycin, cefepime. Electrolyte replacement orders in the form of phosphorus, potassium and magnesium. Lorazepam on a p.r.n. basis, she is on hydrocortisone as well. PHYSICAL EXAMINATION: VITAL SIGNS: Blood pressure 126/56, respiratory rate 40, pulse rate [address] [facility] [address] [place] [address] CONSULTATION Name: KRISTAL FOX Room: [address]#: [id number] Admission: 11/10/17 Attend Phys: Otilia Mcguire MD Discharge: Date of : 53 Report #: [id number] regular, temperature 98.3 degrees. Her weight is 150 pounds. GENERAL APPEARANCE: Awake, alert. She is on BiPAP, unable to provide a good history. The medical records reflect a great deal more than what the patient is able to give me information. She is in [id number] amount of respiratory distress, although not using accessory muscles. She has an increased respiratory rate. HEAD: Atraumatic. EYES: Pupils are round, equal, reactive. ORAL CAVITY: Dry. NECK: No adenopathy. CHEST: Reveals diminished breath sounds. No wheezes or rhonchi. Breath sounds are markedly diminished. CARDIOVASCULAR: Regular rhythm. ABDOMEN: Obese without organomegaly. She has some tenderness in the midepigastric region. There is no guarding or rebound. EXTREMITIES: Negative for edema. No evidence of clubbing. There is no calf tenderness. SKIN: Warm, dry without rash. LYMPHATICS: Negative. Pulses equal bilaterally. NEUROLOGIC: Moves all 4 extremities. LABORATORY DATA: Sodium 136, potassium 3.0, chloride 103, CO2 23, BUN of 27, creatinine 1.2. EGFR 45. Hemoglobin and hematocrit 10.5 and 32, white count 16,500, platelet count 150,000. Influenza A/B screen on admission was negative. Arterial blood gas on 11/10/2017, pH 7.46, pCO2 of 23, pO2 of 51, bicarbonate of 15 on 3 liters. A ventilation perfusion scan was interpreted as low probability for pulmonary embolus. Chest CT on 11/11/2017 was interpreted as no acute cardiopulmonary process. Venous Doppler studies negative for thromboembolic disease. ASSESSMENT: 1. Acute respiratory insufficiency/failure. 2. Tachypnea, undetermined etiology. 3. History of Crohn's disease. 4. Acute respiratory insufficiency/failure as mentioned. 5. Obesity. RECOMMENDATION: Arterial blood gas will be obtained to get a better feel for her overall oxygenation. The etiology of her current tachypneic state is unclear. Need to consider an underlying acidotic condition. We will go ahead and order a 2D echocardiogram. Reviewing records, she has not had this during either her last hospitalization or this [place] [address] CONSULTATION Name: KRISTAL FOX Room: [address] IN [facility].#: [id number] Admission: 11/10/17 Attend Phys: Otilia Mcguire MD Discharge: Date of : 53 Report #: [id number] aspiration precautions. Adjust the BiPAP depending on the results of the arterial blood gas. <ELECTRONICALLY SIGNED> By: Louis Mccray MD 11/14/17 1212 1146 1731Alsherie Silver MD /nt
--- NOTE | 2017-11-14 13:42 | NUR ---
PATIENT REMAINS ON VENT SEDATION CHANGED RESPONDS TO STIMULI. PEEP INCREASED TO 8 FIO2 TO 70%. TUBE FEEDING STARTED AT 20ML/HR.
--- NOTE | 2017-11-14 20:18 | NUR ---
CONSULTED TO PLACE CENTRAL LINE. ORDER AND CONSENT NOTED. TIME OUT WITH DR. SCHWARTZ. RIGHT IJ IDENTIFIED WITH ULTRASOUND AND NOTED TO BE WIDLEY PATENT. USING STERILE TECHNIQUE INCLUDING MAX BARRIER PRECAUTIONS A TRIPLE LUMAN POWER INJECTABLE CENTRAL LINE PLACED WITH OUT DIFFICULTY PER HOSPITAL POLICY. LINE INSERTED TO 17CM WITH 8CM EXTERNAL. GOOD BRISK BLOOD RETURN NOTED AND FLUSHED WITH EASE. LINE SECURED WITH STATLOCK AND BIOPATCH APPLIED. TEGADERM APPLIED AND DRESSING DATED. STAT CHEST X-RAY ORDERED.
[2017-11-15] VITALS (24 sets, daily range): BP systolic 97–130; BP diastolic 48–69
--- NOTE | 2017-11-15 00:45 | NUR ---
recieved report and assumed care of pt at 0030.
[2017-11-15 04:21] LABS: HEMATOCRIT 24.8 % (37.0-47.0); HEMOGLOBIN 8.4 gm/dL (12.0-15.0); MCH 27.2 pg (26.0-34.0); MCHC 33.9 g/dL (28.0-37.0); MCV 80.3 fL (80.0-100.0); RBC 3.09 mil/uL (4.20-5.00); RDW-CV 16.8 % (10.5-14.5); WBC 15.3 thou/uL (4.0-11.0)
[2017-11-15 04:31] LABS: CALCIUM 7.3 mg/dL (8.5-10.1); CREATININE 0.8 mg/dL (0.6-1.3); INR 1.7; POTASSIUM 3.5 mmol/L (3.5-5.1); PROTIME 16.6 Seconds (9.20-11.50)
--- NOTE | 2017-11-15 08:00 | NUR ---
PT REMAINS SEDATED ON VENT. PT TURNED. POTASSIUM BEING REPLACED PER ELECTROLYTE PROTOCOL.F/C DRAING DANISHA URINE. ORAL CARE COMPLETED. WILL MONITOR FREQUENTLY.
[2017-11-15 09:55] LABS: BE 1.1 mmol/L (-2 to +3); HCO3 26.2 mmol/L (22.0-26.0); PCO2 VENOUS 43.5 mmHg (41.0-51.0); PO2 VENOUS 44.5 mmHg (35.0-45.0)
--- NOTE | 2017-11-15 13:51 | NUR ---
potassium 3.4 reated per protocol
--- NOTE | 2017-11-15 18:13 | NUR ---
PT DOING WELL. PT REMAINS SEDATED ON VENT WITH FREQUENT ORAL CARE AND TURNING. PT TUBE FEEDING INCREASED TO 40 ML/HR. POTTASIUM REPOLACED AWAITING LAB RESULTS. PT IS SLOWLY PROGRESSING TOWARDS GOALS.
[2017-11-16] VITALS (21 sets, daily range): BP systolic 100–140; BP diastolic 51–67
[2017-11-16 04:18] LABS: HEMATOCRIT 25.9 % (37.0-47.0); HEMOGLOBIN 8.7 gm/dL (12.0-15.0); MCH 26.9 pg (26.0-34.0); MCHC 33.8 g/dL (28.0-37.0); MCV 79.8 fL (80.0-100.0); MPV 8.1 fl. (7.2-11.1); RBC 3.25 mil/uL (4.20-5.00); RDW-CV 16.1 % (10.5-14.5); WBC 18.1 thou/uL (4.0-11.0)
[2017-11-16 04:30] LABS: INR 2.1; PROTIME 19.8 Seconds (9.20-11.50)
[2017-11-16 04:43] LABS: CALCIUM 7.6 mg/dL (8.5-10.1); CREATININE 0.9 mg/dL (0.6-1.3); MAGNESIUM 1.7 mg/dL (1.8-2.4); POTASSIUM 3.1 mmol/L (3.5-5.1)
--- NOTE | 2017-11-16 19:37 | NUR ---
PT DID WELL THROUGH SHIFT. PT HAD LARGE SOFT UNFORMED BOWEL MOVEMENT TIMES 1 WITH NO FURTHER EPISODES THIS SHIFT.PT TOLERATING TUBE FEEDING WHICH IS AT GOAL OF 50 ML HOUR. PT TO CINT CURRENT IVFS OF D5W ANOTHER 24 HOURS. PT TURNED THROUGH SHIFT. PT REMANS SEDATED ON VENT. PT AFEVERILE THIS SHIFT. PT THIS AFTERNOON DID TEST POSSITIVE FOR MRSA, PRIMARY CALLED AND LEFT INSTRUCTIONS TO CONS ID IF THEY HAVE NOT BEEN CONS. ID IS ON THE CASE. DR SHANKAR HAD ROUNDED EARLIER.POTASSIUM DRWN AWAITING LAB RESULT. SHIFT REPORT GIVEN.
[2017-11-17] VITALS (16 sets, daily range): BP systolic 93–127; BP diastolic 49–72
[2017-11-17 04:05] LABS: NUCLEATED RBCS 0 /100WBC; WBC 15.2 thou/uL (4.0-11.0)
[2017-11-17 04:18] LABS: PROTIME 19.1 Seconds (9.20-11.50)
[2017-11-17 04:20] LABS: CALCIUM 7.3 mg/dL (8.5-10.1); CREATININE 0.9 mg/dL (0.6-1.3); MAGNESIUM 1.7 mg/dL (1.8-2.4); POTASSIUM 3.4 mmol/L (3.5-5.1); TOTAL BILIRUBIN 0.7 mg/dL (<0.1-1.0); TOTAL PROTEIN 5.6 g/dL (6.4-8.2)
[2017-11-17 04:38] LABS: HEMATOCRIT 24.1 % (37.0-47.0); MCH 27.1 pg (26.0-34.0); MCHC 33.2 g/dL (28.0-37.0); MCV 81.4 fL (80.0-100.0); MPV 7.8 fl. (7.2-11.1); PLATELET COUNT* 289 thou/uL (150-400); RBC 2.96 mil/uL (4.20-5.00); RDW-CV 16.9 % (10.5-14.5)
--- NOTE | 2017-11-17 05:52 | NUR ---
PT SLOWLY PROGRESSING TOWARD GOALS. PT INTUBATED AND SEDATED ON VENTILATOR. POSSIBLE TRIAL TO BE DONE TODAY TO ASSESS WEANING POSSIBILITY. PT ON FIO2 AT 40% WITH O2 SAT 97-99%. VITAL SIGNS WITHIN NORMAL LIMITS. NO ACUTE CHANGES DURING SHIFT, WILL CONTINUE TO MONITOR CLOSELY.
[2017-11-17 06:00] LABS: ABSOLUTE EOSINOPHILS 0.5 thou/uL (0.0-0.7); ABSOLUTE LYMPHOCYTES 1.1 thou/uL (0.8-5.3); ABSOLUTE MONOCYTES 0.3 thou/uL (0.0-1.2); ABSOLUTE NEUTROPHILS 13.4 thou/uL (1.6-8.1); HYPOCHROMASIA 1+; PLATELET ESTIMATE ADEQUATE; POLYCHROMASIA Occasional; TARGET CELLS 1+
[2017-11-17 06:01] LABS: ANISOCYTOSIS 1+; POIKILOCYTOSIS 1+
--- NOTE | 2017-11-17 10:30 | NUR ---
PT TRANSFERRED TO ICU ON 11/12 AND INTUBATED. REMAINS ON VENT. TOLERATING TUBE FEEDINGS. NO FAMILY IN THE ROOM, CASE MGT WILL CONTINUE TO FOLLOW.
[2017-11-18] VITALS (15 sets, daily range): BP systolic 89–139; BP diastolic 44–76
[2017-11-18 04:29] LABS: ABSOLUTE BASOPHILS 0.1 thou/uL (0.0-0.2); ABSOLUTE EOSINOPHILS 0.2 thou/uL (0.0-0.7); ABSOLUTE LYMPHOCYTES 1.2 thou/uL (0.8-5.3); ABSOLUTE MONOCYTES 0.5 thou/uL (0.0-1.2); ABSOLUTE NEUTROPHILS 14.1 thou/uL (1.6-8.1); BASOPHILS 0.7 %; EOSINOPHILS 1.2 %; HEMATOCRIT 23.5 % (37.0-47.0); HEMOGLOBIN 7.8 gm/dL (12.0-15.0); LYMPHOCYTES 7.4 %; MCH 26.8 pg (26.0-34.0); MCHC 33.3 g/dL (28.0-37.0); MCV 80.6 fL (80.0-100.0); MPV 7.6 fl. (7.2-11.1); NUCLEATED RBCS 0 /100WBC; PLATELET COUNT* 257 thou/uL (150-400); POLYS 87.7 %; RBC 2.91 mil/uL (4.20-5.00); RDW-CV 17.2 % (10.5-14.5)
[2017-11-18 04:39] LABS: INR 1.3; PROTIME 12.9 Seconds (9.20-11.50)
[2017-11-18 04:46] LABS: ALBUMIN 1.9 g/dL (3.4-5.0); CALCIUM 7.2 mg/dL (8.5-10.1); CREATININE 1.2 mg/dL (0.6-1.3); MAGNESIUM 2.1 mg/dL (1.8-2.4); PHOSPHORUS* 3.4 mg/dL (2.5-4.9); POTASSIUM 3.7 mmol/L (3.5-5.1); TOTAL BILIRUBIN 0.6 mg/dL (<0.1-1.0); TOTAL PROTEIN 5.7 g/dL (6.4-8.2)
--- NOTE | 2017-11-18 06:19 | NUR ---
PT REMAINS STABLE ON VENT. PRECEDEX AND FENTANYL GTT INFUSING PER PROTOCOL, VERSED IVP GIVEN PRN INDICATED. PT IS EASILY AROUSED TO VERBAL AND PHYSICAL STIMULI. TF INFUSING GOAL RATE OF 50 ML/HR, RESIDUAL NO >45ML. SLIGHT BLANCHABLE PINK AREA NOTED OVER BILATERAL BUTTOCKS WHICH HAS LESSENED WITH EACH REASSESSMENT. PT T-MAX OF 103.1, DR HAMMER NOTIFIED AND ORDER RECEIVED FOR PRN TYLENOL, GIVEN ORDERED WITH POSITIVE RESULTS. COMPLETE BED BATH GIVEN, HAIR SHAMPOOED. PT HAS BEEN TURNED Q2HR THROUGHOUT THE SHIFT.
[2017-11-18 09:48] LABS: BE 1.6 mmol/L (-2 to +3); HCO3 24.5 mmol/L (22.0-26.0); PCO2 31.8 mmHg (35.0-45.0); pH 7.504 (7.340-7.450)
[2017-11-18 09:50] LABS: PO2 124.2 mmHg (75.0-100.0)
--- NOTE | 2017-11-18 18:00 | NUR ---
Patient more relaxed this pm alert and responds appropriatly. remains on precidex ay 1.4 mcg.
--- NOTE | 2017-11-18 18:03 | NUR ---
SPOKE WITH DAUGHTER IN LAW ABOUT PT MOVING TO [facility] MAY CONTINUE FENTANYL GTT PER CHILD SUPPORT OFFICER. FAMILY CONSIDERING HOSPICE AT HOME OR TO STAY HERE.
[2017-11-19] VITALS (17 sets, daily range): BP systolic 118–145; BP diastolic 60–78
[2017-11-19 05:22] LABS: ABSOLUTE EOSINOPHILS 0.1 thou/uL (0.0-0.7); ABSOLUTE MONOCYTES 0.6 thou/uL (0.0-1.2); ABSOLUTE NEUTROPHILS 14.4 thou/uL (1.6-8.1); BASOPHILS 0.2 %; EOSINOPHILS 0.7 %; HEMATOCRIT 22.7 % (37.0-47.0); HEMOGLOBIN 7.5 gm/dL (12.0-15.0); LYMPHOCYTES 6.3 %; MCH 26.6 pg (26.0-34.0); MCHC 33.1 g/dL (28.0-37.0); MCV 80.4 fL (80.0-100.0); MONOCYTES 3.6 %; MPV 7.7 fl. (7.2-11.1); NUCLEATED RBCS 0 /100WBC; PLATELET COUNT* 238 thou/uL (150-400); POLYS 89.2 %; RBC 2.83 mil/uL (4.20-5.00); WBC 16.1 thou/uL (4.0-11.0)
[2017-11-19 05:24] LABS: INR 1.4; PROTIME 13.5 Seconds (9.20-11.50)
[2017-11-19 06:24] LABS: ALBUMIN 2.4 g/dL (3.4-5.0); CALCIUM 7.7 mg/dL (8.5-10.1); CREATININE 1.6 mg/dL (0.6-1.3); MAGNESIUM 1.9 mg/dL (1.8-2.4); POTASSIUM 4.3 mmol/L (3.5-5.1); TOTAL BILIRUBIN 0.6 mg/dL (<0.1-1.0); TOTAL PROTEIN 6.2 g/dL (6.4-8.2)
--- NOTE | 2017-11-19 07:21 | NUR ---
PATIENT PROGRESSING TOWARDS GOALS. ABLE TO FOLLOW COMMANDS, NODS YES OR NO TO QUESTIONS. PT ON FENTANYL GTT AND PRECEDEX GTT. HAVING WEANING TRIAL THIS A.M. K+ 4.3. TUBE FEED TURNED OFF D/T TRIAL, LAST RESIDUAL 5ML. PT HAS NO CURRENT CONCERNS AT THIS TIME. WILL CONTINUE TO MONITOR CLOSELY.
[2017-11-19 09:10] LABS: URINE BILIRUBIN NEGATIVE (Negative); URINE BLOOD 3+ (Negative); URINE CLARITY CLEAR; URINE COLOR YELLOW; URINE GLUCOSE-RANDOM NEGATIVE (Negative); URINE KETONES NEGATIVE (Negative); URINE LEUKOCYTES-REFLEX NEGATIVE (Negative); URINE NITRITE-REFLEX NEGATIVE (Negative); URINE PROTEIN 2+ (Negative); URINE SPECIFIC GRAVITY >= 1.030 (1.005-1.030); URINE UROBILINOGEN 0.2 E.U./dl (0.2-1.0)
[2017-11-19 09:21] LABS: SQUAMOUS 0-3 Few /LPF (0-3); URINE WBC-REFLEX 0-5 Rare /HPF (0-5)
[2017-11-19 09:22] LABS: BACTERIA-REFLEX 1-9 Few /HPF (None Seen); COARSE GRANULAR CASTS 4-10 Moderate /LPF (None Seen); CRYSTALS None Seen /LPF (None Seen); HYALINE CASTS >10 Many /LPF (None Seen); MUCUS 0-3 Light strn/LPF (None Seen)
--- NOTE | 2017-11-19 11:16 | NUR ---
ASSUMED PT CARE 0730. PT ALERT. PT DID WEANING TRIAL. PT TOLERATED WITH RESPIRATIONS IN 20'S. TOWARDS END OF WEANING TRIAL RESPIRATIONS IN 30'S. DUE TO RESPIRATIONS AND RENAL STATUS PULMONARY GAVE ORDERS TO KEEP PATIENT INTUBATED.
--- NOTE | 2017-11-19 18:59 | NUR ---
PT TOLERATING INTUBATION. VSS. AFEBRILE. 99% ON INTUBATION. NO CHANGE ON INTUBATION SETTINGS. FELXA-SEAL CHANGED. PT HAD 300 ML OF LIQUID STOOL. ORAL CARE GIVEN Q2 HOURS. PT IN NO APPARTENT PAIN. PT A/O X'S 4. PT APPEARS COMFORTABLE. PT HAD 1200 IN URINE OUTPUT.
[2017-11-20] VITALS (12 sets, daily range): BP systolic 87–160; BP diastolic 48–85
[2017-11-20 02:31] LABS: ABSOLUTE MONOCYTES 0.8 thou/uL (0.0-1.2); ABSOLUTE NEUTROPHILS 15.1 thou/uL (1.6-8.1); BASOPHILS 0.2 %; EOSINOPHILS 0.3 %; HEMATOCRIT 21.9 % (37.0-47.0); HEMOGLOBIN 7.3 gm/dL (12.0-15.0); MCHC 33.5 g/dL (28.0-37.0); MCV 80.8 fL (80.0-100.0); MONOCYTES 4.7 %; MPV 7.8 fl. (7.2-11.1); NUCLEATED RBCS 0 /100WBC; PLATELET COUNT* 225 thou/uL (150-400); POLYS 88.8 %; RBC 2.71 mil/uL (4.20-5.00); RDW-CV 17.2 % (10.5-14.5)
[2017-11-20 02:37] LABS: INR 1.6; PROTIME 15.4 Seconds (9.20-11.50)
[2017-11-20 02:39] LABS: PHOSPHORUS* 3.7 mg/dL (2.5-4.9)
[2017-11-20 02:43] LABS: ALBUMIN 2.9 g/dL (3.4-5.0); CALCIUM 7.3 mg/dL (8.5-10.1); CREATININE 1.6 mg/dL (0.6-1.3); POTASSIUM 4.2 mmol/L (3.5-5.1); TOTAL BILIRUBIN 0.6 mg/dL (<0.1-1.0); TOTAL PROTEIN 6.3 g/dL (6.4-8.2)
--- NOTE | 2017-11-20 06:19 | NUR ---
PATIENT PROGRESSING TOWARDS GOALS. NSR, GOES IN AND OUT OF TACHYPNIC BREATHING. ON FENT AND PRECEDEX GTT. BUN & Cr CONTINUE TO TREND UP. Hgb 7.3. BP ON THE SOFT SIDE CURRENT 113/61 (76). WEANING TRIAL THIS A.M. TUBE FEED OFF. RESIDUALS MAINTAINED LOW THROUGHOUT SHIFT. URINE OUTPUT ADEQUATE. PT COMFORTABLE, Q2H TURNS AND ORAL CARE RECEIVED. FULL BED BATH GIVEN WITH LINEN CHANGE. CALL LIGHT WITHIN REACH. WILL CONTINUE TO MONITOR CLOSELY.
--- NOTE | 2017-11-20 10:30 | NUR ---
PT REMAINS ON VENT, WEANING TRIAL AGAIN TODAY. HAS BEEN TOLERATING TUBE FEEDINGS. PT ALERT, ANSWERS YES/NO QUESTIONS PER NURSING. CASE MGT TO CONTINUE TO FOLLOW.
--- NOTE | 2017-11-20 11:09 | NUR ---
ASSUMED PT CARE 0730. WEANING TRIAL TODAY PER PULMONARY. PT CURRENTLY IN PROCESS. PRECEDEX INFUSING DURING WEANING. PER PULMONARY PT TO CONTINUE PRECEDEX GTT AFTER EXTUBATION.
[2017-11-20 11:12] LABS: BE -3.3 mmol/L (-2 to +3); HCO3 18.8 mmol/L (22.0-26.0); PCO2 23.4 mmHg (35.0-45.0); PO2 103.8 mmHg (75.0-100.0); pH 7.523 (7.340-7.450)
--- NOTE | 2017-11-20 13:24 | NUR ---
PT SUCCESSFULLY WEANED OFF VENTILATOR. PT PLACED ON 3L THEN TITRATED TO 2L. PT SATTING 92% ON 2L NC. WILL CONTINUE TO MONITOR. ORAL CARE Q2 HOURS AND PRN. PICC LINE CONSENT SIGNED BY PT. PT A/O X'S 4. PT NPO PER PULMONARY. PT HOLDING SUCTION IN HAND AND PERFORMING SELF SUCTION. PT ENCOURAGED TO COUGH. AT 1030 PT HAD TEMP OF 100.7. AT 1200 PT HAD TEMP OF 99.9 AXILLARY. NO INTERVENTION GIVEN. WILL CONTINUE TO MONITOR.
--- NOTE | 2017-11-20 15:44 | 2DMMODE ---
[facility] [place] [address] [place] [address] 2 D/M-MODE ECHOCARDIOGRAM Name: KRISTAL FOX Sera Room: [address] ADM IN [facility]#: [id number] Admission: 11/10/17 Attend Phys: Otilia Mcguire, Discharge: Date of : 53 Date of Service: 11/20/17 1543 Report #: [id number] THIS REPORT FOR: //name// APPROVED REPORT Study performed: 11/20/2017 14:13:20 EXAM: Limited 2D Echocardiogram Patient Location: In-Patient Room #: [facility] Status: routine BSA: 1.82 HR: 81 bpm BP: 149/61 mmHg Rhythm: NSR Other Information Study Quality: Good Indications COPD Sepsis Assess valves Left Ventricle The left ventricle is normal size. There is normal left ventricular wall thickness. The left ventricular systolic function is normal. LVEF is 65-70%. This study is not technically sufficient to allow evaluation of the LV diastolic function. Right Ventricle The right ventricle is normal size. The right ventricular systolic function is normal. Atria The left atrium size is normal. The right atrium size is normal. Aortic Valve The aortic valve is normal in structure. Mitral Valve The mitral valve is normal in structure. Tricuspid Valve The tricuspid valve is normal in structure. [place] [address] 2 D/M-MODE ECHOCARDIOGRAM Name: DOMINIQUEKRISTAL Room: [address] IN M.R.#: [id number] Admission: 11/10/17 Attend Phys: Otilia Mcguire, Discharge: Date of : 53 Date of Service: 11/20/17 1543 Report #: [id number] Pulmonic Valve The pulmonary valve is normal in structure. Great Vessels The aortic root is normal in size. IVC is normal in size and collapses >50% with inspiration. Pericardium There is no pericardial effusion. <Conclusion> The left ventricle is normal size. There is normal left ventricular wall thickness. The left ventricular systolic function is normal. LVEF is 65-70%. IVC is normal in size and collapses >50% with inspiration. <ELECTRONICALLY SIGNED> By: Matt Sandra MD, FACC 11/20/17 1543 [id number] Matt Sandra MD, FACC /INF
--- NOTE | 2017-11-20 16:49 | NUR ---
CONSULTED TO PLACE PICC. RIGHT UPPER ARM HISTORY OF DVT. CONSENT AND ORDER NOTED. DISSCUSED LINE WITH PT AND CONSENT OBTAINED. LEFT UPPER ARM ASSESSED WITH ULTRASOUND. LEFT BASILIC IDENTIFIED AND NOTED TO BE WIDLEY PATENT. TRIPLE LUMAN POWER PICC PLACED PER HOSPITAL POLICY. LINE TRIMMED AT 48CM AND ADVANCED TO HUB. X-RAY SHOWS LINE IS COILED IN SVC. ADVISED PRIMARY NURSING TO NOT USE UNTIL OVER WIRE EXCHANGE CAN BE DONE.
--- NOTE | 2017-11-20 18:00 | NUR ---
OG TUBE DC'D AT 1130 WHEN PT EXTUBATED. RESTRAINTS TAKEN OFF AROUND 0945 PRIOR TO EXTUBATION. RETRAINTS HAVE NOT BEEN REAPPLIED. PT NPO PER PULMONARY. PT TOOK SIPS OF WATER. PASSED BED SIDE SWALLOW. PT TOOK PO COUMADIN. PT AFEBRILE. PICC LINE NURSE PLACED LEFT UPPER ARM MIDLINE. PER PICC NURSE LINE NEEDS TO BE ADVANCED 2CM AND ASKED THAT DR BE NOTIFIED. ID NOTIFIED ID ORDERED PICC LINE. ID OKAY TO ADVANCE LINE 2CM. PICC LINE NURSE UNABLE TO ADVANCE LINE AND REPORTED LINE NOT USABLE. LINE DC'D. RIGHT CENTRAL JUGULAR LINE DC'D PER ID REQUEST. 2 PERIPHERAL IV'S INSERTED. ID REPORTS OKAY WITH PERIPHERAL LINE.
--- NOTE | 2017-11-20 18:28 | NUR ---
PRECEDEX TITRATED TO 1.0 MCG/KG/HR. PT SATTING 89% ON 2L NC. PT TITRATED TO 3L NC SATTING AT 94%.
[2017-11-21] VITALS (15 sets, daily range): BP systolic 116–168; BP diastolic 60–82
[2017-11-21 05:16] LABS: HEMATOCRIT 23.1 % (37.0-47.0); HEMOGLOBIN 7.6 gm/dL (12.0-15.0); MCH 26.7 pg (26.0-34.0); MCHC 32.9 g/dL (28.0-37.0); MCV 81.2 fL (80.0-100.0); MPV 8.2 fl. (7.2-11.1); RBC 2.85 mil/uL (4.20-5.00); RDW-CV 17.7 % (10.5-14.5); WBC 17.8 thou/uL (4.0-11.0)
[2017-11-21 05:19] LABS: CREATININE 1.4 mg/dL (0.6-1.3); MAGNESIUM 2.2 mg/dL (1.8-2.4); POTASSIUM 3.9 mmol/L (3.5-5.1)
[2017-11-21 06:17] LABS: BE -0.4 mmol/L (-2 to +3); HCO3 21.9 mmol/L (22.0-26.0); PCO2 26.7 mmHg (35.0-45.0); pH 7.532 (7.340-7.450)
[2017-11-21 06:21] LABS: PO2 53.8 mmHg (75.0-100.0)
--- NOTE | 2017-11-21 06:44 | NUR ---
PATIENT SLOWLY PROGRESSING TOWARDS GOALS. TACHY, PRECEDEX TURNED OFF AT O500. CONTINUES TO BREATH IN THE 40'S. PLACED PT ON HIGH FLOW 02 98-99%. PT STATED SHE TAKES TRAMADOL EVERY DAY BEFORE BED. COMPLAINED OF HEADACHE THROUGHOUT THE NIGHT. TYLENOL DID NOT HELP. PT REMAINS WEAK ABLE TO ASSIST WITH TURNS AND HOLDING MEDS. BP WNL. URINE OUTPUT ADEQUATE. PT HAS NO VOICED CONCERNS AT THIS TIME. CALL LIGHT WITHIN REACH. BED TO LOWEST POSITION. WILL CONTINUE TO MONITOR.
--- NOTE | 2017-11-21 10:30 | NUR ---
PT EXTUBATED YESTERDAY. IS ALERT AND ORIENTED AND ABLE TO ANSWER QUESTIONS. RESP RATE CONTINUES TO BE IN 30-40'S. SPOKE BRIEFLY TO PT TO INTRODUCE MYSELF, CASE MGT WILL CONTINUE TO FOLLOW.
--- NOTE | 2017-11-21 16:31 | NUR ---
PATIENT HAS PROGRESSED WELL TOWARDS GOALS TODAY, DECREASING OXYGEN NEEDS, GREAT OUTPUT PER DOS SANTOS CATHETER. LASIX GIVEN ONCE TODAY AND PATIENT TOLERATED WELL, ASSESSMENT CHARTED. FLEXISEAL D/C TODAY, PATIENT STILL HAS LOOSE STOOLS BUT TRYS TO MAKE IT ON THE BEDPAN. STILL BREATHES HIGH 30'S BUT NO COMPLAINTS OF SOA OR DIFFICULTIES. NO PAIN, NAUSEA AT THIS TIME. RESORT KEEPER REMAINS IN PLACE, FALL PRECAUTIONS IN PLACE. BED IN LOWEST POSITION, CALL LIGHT IN REACH.
[2017-11-22] VITALS (17 sets, daily range): BP systolic 116–153; BP diastolic 46–80
--- NOTE | 2017-11-22 03:00 | NUR ---
DUST BOX TENDER SHOWING HR VARYING FROM 145-190 SUSTAINED, DR GONZALEZ PAGEAlda. PT DENIES CHEST PAIN AND SOA. PT STATES "I CAN FEEL MY HEART BEATING IN MY EARS." EKG OBTAINED, SHOWING AFIB RVR. PT REMAINS ALERT AND ORIENTED, MILDLY ANXIOUS.
[2017-11-22 03:14] LABS: HEMATOCRIT 24.5 % (37.0-47.0); HEMOGLOBIN 7.9 gm/dL (12.0-15.0); MCH 26.1 pg (26.0-34.0); MCHC 32.4 g/dL (28.0-37.0); MCV 80.4 fL (80.0-100.0); MPV 7.5 fl. (7.2-11.1); RBC 3.05 mil/uL (4.20-5.00); RDW-CV 17.8 % (10.5-14.5); WBC 27.8 thou/uL (4.0-11.0)
[2017-11-22 03:28] LABS: PROTIME 43.8 Seconds (9.20-11.50)
[2017-11-22 03:30] LABS: INR 4.6
[2017-11-22 05:49] LABS: ALBUMIN 2.9 g/dL (3.4-5.0); CALCIUM 7.9 mg/dL (8.5-10.1); CREATININE 1.2 mg/dL (0.6-1.3); MAGNESIUM 1.7 mg/dL (1.8-2.4); TOTAL BILIRUBIN 1.3 mg/dL (<0.1-1.0); TOTAL PROTEIN 6.5 g/dL (6.4-8.2)
--- NOTE | 2017-11-22 05:49 | NUR ---
PER DR GONZALEZ, CARDIZEM IV BOLUS AND GTT INITIATED AND CARDIOLOGY CONSULTED. SPOKE TO DR RENTERIA, IVP DIGOXIN GIVEN ORDERED. PT HR NOW 110'S. CRITICAL POTASSIUM LEVEL OF 2.8 RECEIVED FROM LAB, REPLACING PER PROTOCOL.
[2017-11-22 05:51] LABS: POTASSIUM 2.8 mmol/L (3.5-5.1)
--- NOTE | 2017-11-22 07:39 | NUR ---
HR CURRENTLY 90'S, CARDIZEM GTT INFUSING ORDERED. PT HAS CONTINUED TO DENY CHEST PAIN, SOA, AND ANY OTHER DISCOMFORT THROUGHOUT THIS SHIFT. CRITICAL LABS COMMUNICATED AND TREATED PER ORDERS AND PROTOCOL. PT INITIALLY RESISTANT TO REPOSITIONING HOWEVER PERMITTED Q2H TURNS THROUGH MAJORITY OF THE NIGHT. TOLERATING FULL LIQUID DIET WITHOUT COMPLAINT OF NAUSEA. INCONTINENT OF LOOSE ORANGE BM X2, ONE LARGE LOOSE BM IN BEDPAN. CALL LIGHT WITHIN REACH.
[2017-11-22 08:08] LABS: URINE BILIRUBIN NEGATIVE (Negative); URINE BLOOD 3+ (Negative); URINE CLARITY CLEAR; URINE COLOR YELLOW; URINE GLUCOSE-RANDOM NEGATIVE (Negative); URINE KETONES NEGATIVE (Negative); URINE LEUKOCYTES-REFLEX NEGATIVE (Negative); URINE NITRITE-REFLEX NEGATIVE (Negative); URINE PROTEIN 2+ (Negative); URINE SPECIFIC GRAVITY 1.025 (1.005-1.030); URINE UROBILINOGEN 0.2 E.U./dl (0.2-1.0)
[2017-11-22 08:10] LABS: SQUAMOUS 0-3 Few /LPF (0-3); URINE RBC >20 Many /HPF (0-2)
[2017-11-22 08:11] LABS: BACTERIA-REFLEX None Seen /HPF (None Seen); COARSE GRANULAR CASTS 0-3 Few /LPF (None Seen); CRYSTALS None Seen /LPF (None Seen); HYALINE CASTS 0-3 Few /LPF (None Seen); URINE WBC-REFLEX None Seen /HPF (0-5)
--- NOTE | 2017-11-22 11:54 | NUR ---
PATIENT CARE ASSUMED AT 0700. PATIENT AWAKE UPON ENTERING ROOM. PATIENT AOX4. PLEASANT. IS ANXIOUS AT TIMES. REMAINS WEAK. DOES ASSIST WTIH TURNING IN BED. THERAPY HAS NOT SEEN PATIENT YET. DENIES PAIN. HR SINUS TACH ON CARDIZEM GTT. CARDIZEM D/C'D BY DR LIU. STARTED ON SOTALOL. DR LIU ALSO D/C'D COUMADIN. STATED PATIENT HAD SEEN HEMATOLOGY PHYSICIAN IN PAST AND THEY DECIDED SHE DID NOT NEED CHRONIC COAGULATION. IS AWARE OF CLOTS IN RIGHT ARM. ONETIME DOSE OF VITAMIN K ORDERED BY DR SEGOVIA FOR INR >4. CT FOR RENAL STONE PROTOCOL ORDERED FOR SLIGHT HEMATURIA. NEPHROLOGY HAS NO NEW ORDERS. CREAT TRENDING DOWN. URINE OUTPUT 1000 ON NIGHTS. K+ 2.8 ON AM LABS. THREE DOSES OF POTASSIUM GIVEN. RECHECK TO BE DRAWN THIS AFTERNOON. MAGNESIUM 1.8 AND REPLACED WELL. TURNED Q2H, BARRIER CREAM APPLIED. USES CALL LIGHT APPROPRIATELY. BED ALARM ON. WILL CONTINUE WITH CURRENT PLAN OF CARE.
--- NOTE | 2017-11-22 13:03 | EKG ---
[place] [address] ELECTROCARDIOGRAM REPORT Name: KRISTAL FOX Room: [address] ADM IN M.R.#: [id number] Admission: 11/10/17 Attend Phys: Otilia Mcguire MD Discharge: Date of : 53 Report #: [id number] THIS REPORT FOR: //name// [facility] Test Date: 2017-11-22 Test Time: 02:53:07 Pat Name: KRISTAL FOX Department: Room: [address] Gender: F Supervisor Boiler Repair: : [id number] Requested By: Otilia Mcguire Order Number: [id number] Reading MD: Cm Bermeo Measurements Intervals [place] Rate: 168 P: [place]: QRS: 81 QRSD: 79 T: -36 QT: 284 QTc: 475 Interpretive Statements Atrial fibrillation with rapid V-rate Borderline right axis deviation Repolarization abnormality, prob rate related Compared to ECG 11/12/2017 15:21:26 Sinus rhythm no longer present Electronically Signed On 11-22-2017 13:03:16 PIG CONVEYOR OPERATOR by Cm Bermeo [email or web address] <ELECTRONICALLY SIGNED> By: Cm Bermeo MD, [facility] 11/22/17 1303 0253 0253 Cm Bermeo MD, [facility] /EPI
[2017-11-22 15:25] LABS: MAGNESIUM 2.2 mg/dL (1.8-2.4)
[2017-11-22 15:26] LABS: POTASSIUM 4.4 mmol/L (3.5-5.1)
--- NOTE | 2017-11-22 18:13 | NUR ---
PATIENT PROGRESSING TOWARDS GOALS. HR WNL AFTER SOTALOL ADMINISTRATION. VITALS WNL OTHERWISE. ABLE TO TITRATE O2 DOWN TO 6L HIGH FLOW NASAL CANNULA TO KEEP SATS ABOVE 90%. PATIENT UP IN CHAIR FOR 3 HOURS THIS EVENING. ATE DINNER IN CHAIR. DOES REPORT POOR APPETITE, BUT STATES SHE HAS ALWAYS HAD A POOR APPETITE. EDUCATED THAT PATIENT MAY NEED MORE CALORIES/PROTEIN TO HEAL. EDUCATED ABOUT BOOST SUPPLEMENTS. PATIENT STATED TO PUT BOOST BREEZE IN REFRIDGERATOR AND SHE WILL ASK FOR IT LATER. PATIENT'S DAUGHTER LISA CALLED TODAY TO ASK HOW PATIENT WAS DOING. DTR TALKED TO PATIENT ON PHONE AND STATED SHE WILL VISIT LATER TONIGHT OR TOMORROW. PATIENT CONTINUING TO HAVE LOOSE MUCOUS LIKE STOOLS X3 THIS SHIFT. GI SAW PATIENT. NO NEW ORDERS. STATED PATIENT MAY NEE COLONSCOPY LATER WHEN PATIENT IS AT BASELINE. NEPHROLOGY HAD NO NEW ORDERS. WILL CONTINUE WITH CURRENT OUTLINE PLAN OF CARE.
[2017-11-23] VITALS (11 sets, daily range): BP systolic 121–146; BP diastolic 62–85
[2017-11-23 04:29] LABS: HEMATOCRIT 21.6 % (37.0-47.0); HEMOGLOBIN 7.1 gm/dL (12.0-15.0); MCH 26.4 pg (26.0-34.0); MCHC 32.7 g/dL (28.0-37.0); MCV 80.6 fL (80.0-100.0); MPV 7.7 fl. (7.2-11.1); NUCLEATED RBCS 0 /100WBC; PLATELET COUNT* 383 thou/uL (150-400); RBC 2.68 mil/uL (4.20-5.00); RDW-CV 17.8 % (10.5-14.5)
[2017-11-23 04:44] LABS: ALBUMIN 2.8 g/dL (3.4-5.0); CALCIUM 8.1 mg/dL (8.5-10.1); CREATININE 1.3 mg/dL (0.6-1.3); MAGNESIUM 1.9 mg/dL (1.8-2.4); TOTAL PROTEIN 6.5 g/dL (6.4-8.2)
[2017-11-23 04:47] LABS: PROTIME 25.6 Seconds (9.20-11.50)
[2017-11-23 04:57] LABS: INR 2.7
[2017-11-23 06:09] LABS: ABSOLUTE EOSINOPHILS 0.2 thou/uL (0.0-0.7); ABSOLUTE LYMPHOCYTES 1.6 thou/uL (0.8-5.3); ABSOLUTE MONOCYTES 0.6 thou/uL (0.0-1.2); ABSOLUTE NEUTROPHILS 17.6 thou/uL (1.6-8.1); ANISOCYTOSIS 1+; ATYPICAL LYMPHS 1 %; HYPOCHROMASIA 2+; PLATELET ESTIMATE ADEQUATE
[2017-11-23 06:10] LABS: SCHISTOCYTES Occasional; TARGET CELLS Occasional
--- NOTE | 2017-11-23 06:28 | NUR ---
ASSUMED PATIENT CARE AT 1900. PATIENT ALERT AND ORIENTED X4. DOS SANTOS CATH PATENT TO DEPENDENT DRAINAGE. IV PATENT TO ABT'S. NO COMPLAINTS OF PAIN OR DISCOMFORT. REQUESTS TO BE TURNED APPROX EVERY HOUR BUT, WILL REFUSE TURNS SOME OF THE TIME. USED CALL LIGHT APPROPRIATELY. HOURLY ROUNDING COMPLETED DOCUMENTED.
--- NOTE | 2017-11-23 08:52 | NUR ---
ASSUMED CARE OF PT AROUND 0730 THIS AM. REFER TO ASSESSMENT. PT STATES SHE HOPES TO TRANSFER TO TELE THIS SHIFT. PT CONTINUES ON 8L OXYGEN/HFNC. NO C/O PAIN THIS AM. NO OTHER CONCERNS AT THIS TIME. CLWR. WCTM.
--- NOTE | 2017-11-23 16:56 | EKG ---
[place] [address] ELECTROCARDIOGRAM REPORT Name: FOXKRISTAL Room: [address] ADM IN .R.#: [id number] Admission: 11/10/17 Attend Phys: Otilia Mcguire MD Discharge: Date of : 53 Report #: [id number] THIS REPORT FOR: //name// [facility] Test Date: 2017-11-23 Test Time: 08:07:43 Pat Name: KRISTAL FOX Department: Room: [address] Gender: F Horticulture Superintendent: MYRIAM : 1955 Requested By: Cm Bermeo Order Number: [id number] Eliezer MD: Cm Bermeo Measurements Intervals [place] Rate: 86 P: 82 [place]: 159 QRS: 79 QRSD: 78 T: -18 QT: 376 QTc: 450 Interpretive Statements Sinus rhythm Borderline T abnormalities, inferior leads Compared to ECG 11/22/2017 02:53:07 Atrial fibrillation no longer present Electronically Signed On 11-23-2017 16:56:43 CDT by Cm Bermeo [email or web address] <ELECTRONICALLY SIGNED> By: Cm Bermeo MD, [facility] 11/23/17 1656 6 6 Cm Bermeo MD, [facility] /EPI
--- NOTE | 2017-11-23 17:26 | NUR ---
PT PROGRESSING TOWARDS GOALS THIS SHIFT. ABLE TO DOWNGRADE TO TELE STATUS THIS SHIFT. NO PLANS FOR TRANSFERRING ROOMS AT THIS TIME. PT FINISHING ONE UNIT OF PRBC'S AT THIS TIME FOR HGB 7.1 THIS AM. PT ON 5L OXYGEN/NC. PT UP TO BSC AND CHAIR FOR MEALS WITH ASSIST X1 AND GAIT BELT THIS SHIFT. PT REPORTS TACHYPNEA AND SOA ARE BASELINE FOR HER PRIOR TO ADMISSION TO HOSPITAL. NO OTHER CONCERNS AT THIS TIME. CLWR. WCTM.
[2017-11-23 18:54] LABS: HEMATOCRIT 25.6 % (37.0-47.0); HEMOGLOBIN 8.4 gm/dL (12.0-15.0)
[2017-11-24 00:05] VITALS: BP 125/62
[2017-11-24 02:00] VITALS: BP 121/65
[2017-11-24 04:00] VITALS: BP 110/65
[2017-11-24 04:33] LABS: HEMATOCRIT 24.6 % (37.0-47.0); HEMOGLOBIN 8.1 gm/dL (12.0-15.0); MCH 26.3 pg (26.0-34.0); MCHC 32.7 g/dL (28.0-37.0); MCV 80.4 fL (80.0-100.0); MPV 7.5 fl. (7.2-11.1); RBC 3.06 mil/uL (4.20-5.00); RDW-CV 17.8 % (10.5-14.5); WBC 13.7 thou/uL (4.0-11.0)
[2017-11-24 04:40] LABS: INR 1.8; PROTIME 17.8 Seconds (9.20-11.50)
[2017-11-24 04:54] LABS: ALBUMIN 2.9 g/dL (3.4-5.0); CALCIUM 7.8 mg/dL (8.5-10.1); CREATININE 1.2 mg/dL (0.6-1.3); MAGNESIUM 1.8 mg/dL (1.8-2.4); TOTAL PROTEIN 6.5 g/dL (6.4-8.2)
--- NOTE | 2017-11-24 05:55 | NUR ---
ASSUMED PATIENT CARE AT 1900. PATIENT ALERT AND ORIENTED TIMES FOUR. HAS BEEN PERFORMING HER OWN TURNS THROUGH THE SHIFT AND MANAGING A LOT MORE SELF CARE INDEPENDENTLY. DOS SANTOS CATH IN PLACE TO DEPENDENT DRAINAGE. IV IN PLACE AND PATENT. NO COMPLAINTS OF PAIN OR DISCOMFORT THROUGH SHIFT. YEAST PUMPER COMPLETED CHARTED.
[2017-11-24 06:00] VITALS: BP 130/69
--- NOTE | 2017-11-24 08:26 | CON ---
[address] [address] CONSULTATION Name: KRISTAL FOX Room: [address] ADM IN M.R.#: [id number] Admission: 11/10/17 Attend Phys: Otilia Mcguire MD Discharge: Date of : 53 Report #: [id number] THIS REPORT FOR: //name// CC: Otilia Tee DO DATE OF SERVICE: 11/22/2017 HISTORY OF PRESENT ILLNESS: The patient is a 62-year-old single white female I was asked to see in the hospital today after she developed atrial fibrillation. The patient has an extensive past medical history. She has a long history of Crohn's disease and has had a partial bowel resection. She apparently had a Port-A-Cath in the past, receiving therapy for Crohn's disease. The patient stays fairly active and continues to work. The patient has had no significant bleeding problem, taking warfarin. However, she was recently admitted to [facility] with hypokalemia and an INR of 8. She apparently was given vitamin K. The patient was then admitted to [facility] on 11/10/2017 with fatigue. She developed increasing shortness of breath and was placed on BiPAP. She was seen by Hematology who suggested she could be off of anticoagulation at this time. She presented with fever. The patient had progressive shortness of breath and eventually had to be intubated. She is actually on the ventilator for about a week. Fortunately, she was finally extubated a couple of days ago. She was felt to have pneumonia with septicemia. Last night, the patient went into atrial fibrillation with a rapid ventricular response rate. She was started on IV diltiazem. She converted to sinus rhythm. I was asked to see her for further evaluation and treatment. She actually denies a history of myocardial infarction or chest pain. She has had no previous history of shortness of breath, palpitations, syncope. She has had chronic edema of the right upper extremity. PAST MEDICAL HISTORY: Otherwise significant for hysterectomy, tonsillectomy. She has a previous history of hypertension, but no history of diabetes. PREVIOUS MEDICATIONS: Consists of following: She is on albuterol inhaler for asthma, Symbicort, Synthroid, spironolactone, verapamil. She is no longer on warfarin. FAMILY HISTORY: Her mother had heart attack. SOCIAL HISTORY: She is , lives with a son in [place], quit smoking years ago. Does not use alcohol. Does mention she has been working recently. REVIEW OF SYSTEMS: She has had no history of stroke. She does have asthma. She has had a peptic ulcer in the past. She has had kidney stones. No cancer. She saw a psychiatrist as a child. No [place] [address] CONSULTATION Name: KRISTAL FOX Sera Room: [address] IN [facility]#: [id number] Admission: 11/10/17 Attend Phys: Otilia Mcguire MD Discharge: Date of : 53 Report #: [id number] PHYSICAL EXAMINATION: GENERAL: Revealed an elderly female lying in bed. She appeared in no acute distress at this time. VITAL SIGNS: She had a blood pressure of 120/70, pulse is 80, she is afebrile. HEENT: She was anicteric, conjunctivae are pink. Mucous membranes are moist. NECK: Veins do not appear distended. CHEST: Clear to auscultation. CARDIAC: Regular rate and rhythm. ABDOMEN: Obese, soft, nontender. EXTREMITIES: Had 1+ edema. Dorsalis pedis pulse 1+ bilaterally. SKIN: Cool and dry. NEUROLOGIC: Nonfocal. LYMPHATIC: No adenopathy. MUSCULOSKELETAL: No joint effusion. DIAGNOSTIC DATA: Her ECG on admission 2 weeks ago showed a sinus rhythm, nonspecific ST-segment changes. ECG last night showed atrial fibrillation, rapid ventricular response rate, nonspecific ST-segment changes. Workup since her hospitalization 2 weeks ago included an echocardiogram that showed normal left ventricular function, trace tricuspid insufficiency. Her recent x-ray noted a superior vena cava stent, PICC line, cardiomegaly, atelectasis. Venous duplex scan 2 weeks ago showed no DVT of the right arm. CT scan of the chest using the PE protocol admission showed interstitial infiltrates, no pulmonary embolus. LABORATORY WORK: Sodium 145, potassium is now 2.8, BUN 32, creatinine 1.2. Liver function studies were normal. Albumin is 2.9, troponin 0.06. BNP 485. INR today is 4.6. White blood cell count 27,000, hemoglobin 7, hematocrit 24. IMPRESSION AND RECOMMENDATIONS: 1. Atrial fibrillation, suspect secondary to multiple medical problems. I would check thyroid function studies. The patient converted with diltiazem. At this time, I would switch the patient to oral medications. I would recommend stopping IV diltiazem and starting sotalol. 2. History of Crohn's disease. 3. History of deep venous thrombosis of the right upper extremity. The patient does not appear to require chronic anticoagulation. 4. Edema. Suspect secondary to low albumin. 5. Hypokalemia. Recommend replacing potassium. 6. Hypertension. The patient has been on a calcium feliciano in the past. 7. History of kidney stones. <ELECTRONICALLY SIGNED> By: Cm Bermeo MD, FACC 03/12/18 0826 1112 [id number] Earl Bermeo MD, [facility] /nt
[2017-11-24 10:26] VITALS: BP 110/62
--- NOTE | 2017-11-24 11:38 | NUR ---
PATIENT UP TO CHAIR AND COMMODE. LEVON KHAN.
--- NOTE | 2017-11-24 18:13 | EKG ---
[place] [address] ELECTROCARDIOGRAM REPORT Name: KRISTAL FOX Room: [address] ADM IN M.R.#: [id number] Admission: 11/10/17 Attend Phys: Otilia Mcguire MD Discharge: Date of : 53 Report #: [id number] THIS REPORT FOR: //name// [facility] Test Date: 2017-11-24 Test Time: 10:24:05 Pat Name: KRISTAL FOX Department: Room: [facility] Gender: F Animal Cytologist: 26 : 1955 Requested By: Cm Bermeo Order Number: [id number] Eliezer MD: Stanislaw Dimas Measurements Intervals [place] Rate: 77 P: 116 DC: 158 QRS: 80 QRSD: 80 T: 33 QT: 363 QTc: 411 Interpretive Statements Sinus rhythm Compared to ECG 11/23/2017 08:07:43 T-wave abnormality no longer present Electronically Signed On 11-24-2017 18:13:03 CDT by Stanislaw Dimas [email or web address] <ELECTRONICALLY SIGNED> By: Stanislaw Dimas MD, [facility] 11/24/17 1813 1024 1024 Stanislaw Dimas MD, FACC /EPI
[2017-11-24 20:00] VITALS: BP 157/84
[2017-11-25] VITALS: BP 149/71
[2017-11-25 05:00] VITALS: BP 124/53
[2017-11-25 06:00] LABS: HEMATOCRIT 24.2 % (37.0-47.0); HEMOGLOBIN 8.1 gm/dL (12.0-15.0); MCH 27.2 pg (26.0-34.0); MCHC 33.6 g/dL (28.0-37.0); MPV 7.4 fl. (7.2-11.1); RBC 2.99 mil/uL (4.20-5.00); RDW-CV 17.4 % (10.5-14.5)
[2017-11-25 06:06] LABS: INR 1.9; PROTIME 18.3 Seconds (9.20-11.50)
[2017-11-25 06:21] LABS: CALCIUM 8.2 mg/dL (8.5-10.1); CREATININE 1.2 mg/dL (0.6-1.3); MAGNESIUM 1.8 mg/dL (1.8-2.4); POTASSIUM 4.9 mmol/L (3.5-5.1)
--- NOTE | 2017-11-25 06:24 | NUR ---
ASSUMED PATIENT CARE AT 1900. PATIENT ALERT AND ORIENTED TIMES FOUR. IV PATENT. NO COMPLAINTS OF PAIN OR DISCOMFORT NOTED. O2 AT 3L. PATIENT VERY HAPPY TO BE UP ON THIS FLOOR. ABLE TO AMBULATE TO BSC WITH ASSISST OF ONE AND HER OXYGEN. HOURLY ROUNDING COMPLETED DOCUMENTED. FALL RISK PRECAUTIONS IN PLACE. VITAL SIGNS REMAIN STABLE.
[2017-11-25 08:00] VITALS: BP 132/67
--- NOTE | 2017-11-25 08:20 | NUR ---
ASSUMED PT. CARE AND RECEIVED REPORT FROM RESEARCH SUBJECT NURSE. CARDIAC RYTHM SINUS RYTHM HEART RATE 66 BLOOD PRESSURE 132/67 OXYGEN SAT 97 ON 4 LITER NC. NOLABORED BREATHING. NO COMPLAINT ABOUT PAIN AT THIS MOMENT. RIGHT UPPER ARM IV LINE PATENT. PT CONCERNS ABOUT HER DISCHARGE TIME. FULL ASSESSEMENT COMPLETED. REFER TO CHARTING
[2017-11-25 11:20] VITALS: BP 118/59
[2017-11-25 16:18] VITALS: BP 122/72
--- NOTE | 2017-11-25 16:22 | NUR ---
Spoke with Pt regarding disposition. Pt continues to plan to return home at dc. Pt did not want to discuss skilled. Pt is open to HH if ordered. Following.
--- NOTE | 2017-11-25 17:44 | NUR ---
PATIENT MAINTAIN ADEQUATE OXYGENATION DURING SHIFT WITH NC 4 LITERS. NO COMPLAINT ABOUT PAIN. OUT OF BED TO CHAIR X1. TOLORATED MEDICATIONS WELL. FREQUENTLY USED BEDSIDE COMMODE. HAD BOWEL MOVEMENT X5. STOOL IS LIQUID , BROWNISH AND MODERATE. CARDIAC RYTHM STABLE SINUS RYTHM. CONSUMED FULL MEALS CURRENTLY RESTING IN BED WAITING FOR DAUGTHER TO VISIT. COLONOSCOPY CANNOT BE PERFORMED AT THIS TIME PER SKIP LOAD DRIVER REQUEST. RESTARTED XARELTO ORDERED
[2017-11-25 20:00] VITALS: BP 147/55
--- NOTE | 2017-11-25 22:54 | NUR ---
Assume patient care at 1900. Patient alert and oriented times four. Able to titateO2 down to 2.5l via NC. JAIME IV clotted off. Attempted to start new IV. Suervisor attempted to sart new IV. All attempts were unsuccessful. Patient able to turn self in bed. Up to BSC with STB. No complaints f pain or discomfort noted at this time. Generalized bruisin on upper extremities. No other skin issues at this time. Will continue to monitor
[2017-11-26] VITALS (7 sets, daily range): BP systolic 122–180; BP diastolic 57–75
[2017-11-26 05:24] LABS: INR 1.7; PROTIME 16.9 Seconds (9.20-11.50)
--- NOTE | 2017-11-26 10:36 | NUR ---
DISCUSSED WITH DR CAMPBELL. ANTICIPATE DC SOON. MET WITH PT AND SPOKE WITH DTR/LISA OVER THE PHONE [phone]. THEY BOTH WANT PT TO COME HOME. SOMEONE CAN BE HOME WITH PT AT ALL TIMES AND ASSIST. DISCUSSED DC NEEDS, IE: WALKER, POSSIBLE O2, HH AND IV ANTIBX. PT AND LISA ARE WILLING TO LEARN TO GIVE IVS AND PT STATES SHE HAS DONE THAT AT HOME BEFORE. PT WILL NEED PICC PRIOR TO DC. CALLED AND FAXED REFERRAL TO [facility] TO HAVE IV ANTIBX BENEFIT CHECKED. AWAIT CALL BACK
--- NOTE | 2017-11-26 10:41 | CON ---
[address] [address] CONSULTATION Name: FOXKRISTAL Room: [address] IN .R.#: [id number] Admission: 11/10/17 Attend Phys: Otilia Mcguire MD Discharge: Date of : 53 Report #: [id number] THIS REPORT FOR: //name// CC: Otilia Tee DATE OF SERVICE: 11/22/2017 REASON FOR CONSULTATION: Acute kidney injury. REQUESTING PHYSICIAN: Dr. Mcguire. HISTORY OF PRESENT ILLNESS: The patient is a 62-year-old female, admitted to the hospital on 11/10/2017 with the complaints of shortness of breath and cough. She has a history of COPD. At the time of presentation, she was complaining of having fever, chills, nausea, vomiting and weakness. She was diagnosed with pneumonia and acute respiratory failure. She was also seen by security infrastructure engineer. Dr. Sandra was in the case, who performed echocardiogram. Her left ventricular systolic function was normal. EF was normal. Right ventricle was normal. This study was not technically sufficient to evaluate diastolic function of left ventricle. No valvular abnormalities. She was doing well until she had to be transferred to Intensive Care Unit. She was intubated, now extubated. Her creatinine went up to 1.6 from normal level, but yesterday, came down to 1.4, today it is down to 1.2. SOCIAL HISTORY: No current tobacco or alcohol abuse. FAMILY HISTORY: Noncontributory. MEDICATIONS: Reviewed. PHYSICAL EXAMINATION: GENERAL: She is awake and alert. States she feels better. VITAL SIGNS: Reviewed. HEENT: Pupils are round. NECK: Supple. LUNGS: Diminished breath sounds. Few coarse breath sounds bilaterally. CARDIOVASCULAR: Irregular rate. ABDOMEN: Obese, soft. EXTREMITIES: Lower extremities with 1 to 2+ edema. ASSESSMENT: 1. Acute kidney injury, resolving. 2. Acute respiratory failure, treatment per Dr. Gomez, continues to improve. 3. Hypokalemia. 4. [place] [address] CONSULTATION Name: KRISTAL FOX Room: [address] IN [facility]#: [id number] Admission: 11/10/17 Attend Phys: Otilia Mcguire MD Discharge: Date of : 53 Report #: [id number] PLAN: Replace potassium. Continue antibiotics per Dr. Gomez. Continue steroids. From my standpoint, she is improving, so I will be on standby. Thank you very much for asking my opinion on acute kidney injury of the patient. <ELECTRONICALLY SIGNED> By: Herrera Alvarez MD 11/26/17 1041 0945 [id number] Bree Alvarez MD /nt
--- NOTE | 2017-11-26 15:10 | NUR ---
HAVE CALLED EVERY HH AGENCY THAT IS IN NETWORK WITH PT'S INSURANCE PER WEBSITE AND DISCUSSION WITH [facility]: [facility], [facility], [facility], [facility], [facility], [facility], [facility], [facility], [facility] AND [facility]. ALL OF THEM ARE EITHER OUT OF NETWORK OR FULL AND NOT ABLE TO ACCEPT PT. CALL TO ALL OF THE INFUSION COMPANIES ON WEBSITE: [facility], [facility] AND [facility] CALL TO CUSTOMER SERVICE. ALL ARE OUT OF NETWORK. PER CUSTOMER SERVICE, THERE ARE NO INFUSION COMPANIES IN NETWORK IN THE PATIENT'S AREA. ASKED IF COULD SET UP OUT OF NETWORK FOR HH OR INFUSION, WAS TOLD THAT COULD SUBMIT CLINICAL TO [phone] AND WOULD BE REVIEWED BUT MAY TAKE UP TO 14 DAYS. NO OTHER OPTION WAS GIVEN. CALL PLACED TO LOCAL REP FOR ASSIST/CHAPINCITO. SHE WILL DO SOME CHECKING AND CALL CM BACK.
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
--- NOTE | 2017-11-26 17:58 | EKG ---
[place] [address] ELECTROCARDIOGRAM REPORT Name: KRISTAL FOX Room: [address] ADM IN M.R.#: [id number] Admission: 11/10/17 Attend Phys: Otilia Mcguire MD Discharge: Date of : 53 Report #: [id number] THIS REPORT FOR: //name// [facility] Test Date: 2017-11-26 Test Time: 08:55:59 Pat Name: KRISTAL FOX Department: Room: [address] Gender: F Machine Coremaker: : 1955 Requested By: Stanislaw Dimas Order Number: [id number] Eliezer MD: Stanislaw Dimas Measurements Intervals [place] Rate: 76 P: 26 CA: 150 QRS: 78 QRSD: 86 T: 29 QT: 382 QTc: 430 Interpretive Statements Sinus rhythm Compared to ECG 11/25/2017 09:51:46 No significant changes Electronically Signed On 11-26-2017 17:57:56 CDT by Stanislaw Dimas [email or web address] <ELECTRONICALLY SIGNED> By: Stanislaw Dimas MD, [facility] 11/26/17 1757 0855 08 Stanislaw Dimas MD, FACC /EPI
--- NOTE | 2017-11-26 18:31 | NUR ---
PATIENT PROGRESSING TOWARDS GOALS. NO COMPLAINTS OF PAIN THIS SHIFT. TITRATED TO ROOM AIR. UP IN ROOM WITH A WALKER. INFUSION NURSE PLACED PICC LINE THIS AFTERNOON. UNABLE TO ADVANCE TO GOOD PLACEMENT. IR WILL ADVANCE PICC LINE TOMORROW MORNING FIRST THING. ALEXANDRU BARRIGA AWARE AND PLANS TO DO PATIENT FIRST THING TOMORROW. PATIENT UPDATED ON PLAN OF CARE AND IS AGREEABLE. CASE MANAGEMENT WAS UNABLE TO FIND HOME HEALTH FOR PATIENT DUE TO PATIENT INSURANCE. PATIENT WAS INFORMED SHE WOULD HAVE TO DC TO SNF. PATIENT AGREED. PLANNING TO FINISH PICC LINE PLACEMENT TOMORROW AND GET INSURANCE AUTH FOR SNF. POTENTIAL DC TOMORROW.
[2017-11-27] VITALS: BP 118/61
[2017-11-27 04:00] VITALS: BP 139/81
--- NOTE | 2017-11-27 04:28 | NUR ---
Assumed patient care at 1900. Patient alert an oriented times four. 2 dauhters in room. Patient and family discussing placement and items that they would be able to bring. Education done on each facility havin their own policy and to check with the speciic facility. No complaints of pain or discomfort noted. Remained on room air throuh the night. Able to ransfer to BSC with STB ad verbal cuing. Picc to be advanced today with fluroscopy in IR. Patient is in agreement with plan of care and placemnet decision. Some redness noted to bilateral butocks/hip area. Patient educated to not lie on her sides quite as much. She is a side sleeper. Patient requested not to be awakened again this shift as AM cluster care completed with a trip to the BSC, blood draw and vitals done. Will pass on to day shift to please give her protonix with 0900 medications. Patient would very much like to get some "good sleep before therapies" night filler and hourly rounding comleted as documented. sleep" No complaints of pain or discomfort noted through shift.
[2017-11-27 05:30] LABS: INR 1.5; PROTIME 14.6 Seconds (9.20-11.50)
[2017-11-27 08:00] VITALS: BP 142/72
--- NOTE | 2017-11-27 09:32 | NUR ---
Spoke with Stephie at [facility], they will not be able to secure an infusion company, within a timely manner to allow Pt to dc to home. Per Stephie, she will work on skilled auth, after a meeting that she will be in until 12. Updated Kalee at [facility]. Following.
[2017-11-27 11:34] VITALS: BP 180/72
--- NOTE | 2017-11-27 12:28 | NUR ---
RECEIVED REPORT AND ASSUMED CARE OF PT AT 0730. VSS. CARDIAC MONITORING IN PLACE. PT REPORTED HEADACHE 01/22. ADMINISTERED PRN TYLENOL. REDUCED PAIN TP 09/24. COMPLETED ASSESSMENT AND CHARTED. DISCUSSED PLAN OF CARE WITH PT, VERBALIZED UNDERSTANDING. PT SCHEDULED TO GO TO IR FOR PICC LINE TO BE ADVANCED, RETURNED TO UNIT WITH APPROVAL GIVEN TO USE PICC LINE. BED IN LOWEST POSITION, CALL LIGHT WITHIN REACH, BED ALARM ON. WILL CONTINUE TO MONITOR FOR THE REMAINDER OF THE SHIFT.
[2017-11-27] MEDS ORDERED: XARELTO15 MG PO (13:29)
[2017-11-27] MEDS ORDERED: SORINE 80 MG TA80 M1 PO (13:31)
[2017-11-27] MEDS ORDERED: CEFAZOLIN1 GM/50 M1 IV (13:35)
[2017-11-27 13:36] VITALS: BP 134/66
--- NOTE | 2017-11-27 15:24 | EKG ---
[place] [address] ELECTROCARDIOGRAM REPORT Name: KRISTAL FOX Room: [address] ADM IN M.R.#: [id number] Admission: 11/10/17 Attend Phys: Otilia Mcguire MD Discharge: Date of : 53 Report #: [id number] THIS REPORT FOR: //name// [facility] Test Date: 2017-11-27 Test Time: 11:25:03 Pat Name: KRISTAL FOX Department: Room: [address] Gender: F E Business Specialist: : 1955 Requested By: Stanislaw Dimas Order Number: [id number] Eliezer MD: Stanislaw Dimas Measurements Intervals [place] Rate: 67 P: 0 CA: 152 QRS: 87 QRSD: 88 T: 56 QT: 385 QTc: 407 Interpretive Statements Sinus rhythm Borderline right axis deviation Compared to ECG 11/26/2017 08:55:59 No significant changes Electronically Signed On 11-27-2017 15:24:10 CDT by Stanislaw Dimas [email or web address] <ELECTRONICALLY SIGNED> By: Stanislaw Dimas MD, [facility] 11/27/17 1524 1125 1125 Stanislaw Dimas MD, FACC /EPI
--- NOTE | 2017-11-27 16:16 | NUR ---
PT BEING DISCHARGED TO [facility], BY [facility]ELCHAIR VAN. REPORT GIVEN TO LUCIA AT [facility]. PT DISCHARGED WITH PICC LINE IN L ARM FOR CONTINUED IV ANTIBIOTIC THERAPY.
--- NOTE | 2017-12-08 15:05 | CON ---
[address] [address] CONSULTATION Name: KRISTAL FOX Room: [address] IN ..#: [id number] Admission: 11/10/17 Attend Phys: Otilia Mcguire MD Discharge: 11/27/17 Date of : 53 Report #: [id number] THIS REPORT FOR: //name// CC: Otilia Tee DATE OF SERVICE: 11/22/2017 REASON FOR CONSULT: History of Crohn's. HISTORY OF PRESENT ILLNESS: This is a 62-year-old female who has multiple medical problems including history of DVTs for which she is on anticoagulation therapy. The patient was initially admitted about a month ago with elevated INR and hyperkalemia. Her hospitalization was complicated with respiratory failure and the patient was intubated. Two days ago, she has been extubated and currently she is tachypneic on 10 liters of nasal cannula. We were consulted for her history of Crohn's and diarrhea. The patient reports that her last colonoscopy was couple of years ago in [place], but does not know the details about the findings. She also reports that she had long history of Crohn's and used to be on Humira until 3 years ago and due to lack of followup, she has not been on any medication for her Crohn's. She currently denies any abdominal pain, hematochezia or melena. PAST MEDICAL HISTORY: Significant for history of Crohn's with bowel resections. Recent respiratory failure with intubation and recent extubation. Hypertension, asthma, DVT for which she is on anticoagulation therapy, gallbladder disease, status post cholecystectomy, migraines, arthritis, depression. ALLERGIES: Significant to REMICADE and ISOPROPYL. MEDICATIONS: Please refer to hospital MAR. SOCIAL HISTORY: The patient denies tobacco or alcohol use. FAMILY HISTORY: Negative for GI malignancy. PHYSICAL EXAMINATION: VITAL SIGNS: Reveals blood pressure of 116/54, respirations 38, pulse is 100, temperature 98.2. LUNGS: Decreased breath sounds at the bases. CARDIOVASCULAR: Tachycardia, but normal rate. ABDOMEN: Soft, nontender, nondistended. Bowel sounds are positive. NEUROLOGIC: The patient is alert, [place] 3[place] [address] CONSULTATION Name: KRISTAL FOX Sera Room: [address]#: [id number] Admission: 11/10/17 Attend Phys: Otilia Mcguire MD Discharge: 11/27/17 Date of : 53 Report #: [id number] LABORATORY DATA: Reveal sodium of 145, potassium 2.8, BUN is 32, creatinine 1.2, glucose is 165. Liver function tests are all within normal limits. Bilirubin is 1.3, albumin is 2.9. WBC is 27.8 with hemoglobin of 7.9 and platelets of 344. C. diff also was checked on November 17 which was negative. IMAGING: CT of abdomen and pelvis was initially obtained on November 10. There was mild dilation of the small bowel, which appears to be nonspecific. There was evidence of fatty infiltration of the liver, but the study was otherwise unremarkable. ASSESSMENT AND PLAN: We will consider checking inflammatory markers. When her breathing is stable, we will consider a colonoscopy to further evaluate her Crohn's disease. We will recheck her stool for Clostridium difficile if her diarrhea persists. <ELECTRONICALLY SIGNED> By: Ida Staton MD 12/08/17 1505 0943 [id number] Staton MD /nt
== END 2017-11-27 16:48 | DRG 870 ==
LOC: M.ERS 15:23 → M.TBA-ER 19:28 → M.2W 19:28 → M.ICU 11-12 18:40 → M.2W 11-24 15:21
PROVIDERS: Family Medicine; Internal Medicine; Internal Medicine Critical Care Medicine; Internal Medicine Pulmonary Disease; Nurse Practitioner Family; Specialist; ADMIT Internal Medicine
DX: A41.01 Sepsis due to Methicillin susceptible Staphylococcus aureus (principal); N17.0 Acute kidney failure with tubular necrosis; J96.01 Acute respiratory failure with hypoxia; J15.9 Unspecified bacterial pneumonia; J44.1 Chronic obstructive pulmonary disease with (acute) exacerbation; J44.0 Chronic obstructive pulmonary disease with (acute) lower respiratory infection; K50.90 Crohn's disease, unspecified, without complications; I42.9 Cardiomyopathy, unspecified; I82.621 Acute embolism and thrombosis of deep veins of right upper extremity; R65.20 Severe sepsis without septic shock; G43.909 Migraine, unspecified, not intractable, without status migrainosus; I50.9 Heart failure, unspecified; I11.0 Hypertensive heart disease with heart failure; I25.10 Atherosclerotic heart disease of native coronary artery without angina pectoris; E03.9 Hypothyroidism, unspecified; K21.9 Gastro-esophageal reflux disease without esophagitis; F32.9 Major depressive disorder, single episode, unspecified; M19.90 Unspecified osteoarthritis, unspecified site; E87.6 Hypokalemia; I48.91 Unspecified atrial fibrillation; D64.9 Anemia, unspecified; E83.42 Hypomagnesemia; E66.9 Obesity, unspecified; Z90.49 Acquired absence of other specified parts of digestive tract; Z79.899 Other long term (current) drug therapy; Z88.8 Allergy status to other drugs, medicaments and biological substances; Z68.27 Body mass index [BMI] 27.0-27.9, adult; Z87.891 Personal history of nicotine dependence; Z90.710 Acquired absence of both cervix and uterus; Z87.442 Personal history of urinary calculi; Z82.49 Family history of ischemic heart disease and other diseases of the circulatory system

== ENCOUNTER 2017-12-26 12:46 | Inpatient (IN) | payer OTHER ==
[~2017-12-26] VITALS: Ht 154.9 cm; Wt 72.1 kg
[~2017-12-26 12:46] MED LIST changes: +CEFAZOLIN1 GM/50 M1 IV; +SORINE 80 MG TA80 M1 PO; +XARELTO15 MG PO
[2017-12-26 12:53] VITALS: BP 130/69
[2017-12-26 13:16] LABS: HEMATOCRIT 33.9 % (37.0-47.0); HEMOGLOBIN 11.2 gm/dL (12.0-15.0); MCH 26.8 pg (26.0-34.0); MCV 81.2 fL (80.0-100.0); MPV 6.5 fl. (7.2-11.1); NUCLEATED RBCS 0 /100WBC; PLATELET COUNT* 309 thou/uL (150-400); RBC 4.18 mil/uL (4.20-5.00); RDW-CV 18.5 % (10.5-14.5); WBC 12.4 thou/uL (4.0-11.0)
[2017-12-26 13:18] LABS: BE 0.2 mmol/L (-2 to +3); HCO3 22.5 mmol/L (22.0-26.0); PCO2 29.2 mmHg (35.0-45.0); PO2 77.4 mmHg (75.0-100.0); pH 7.504 (7.340-7.450)
[2017-12-26 13:25] LABS: ANION GAP 13 mmol/L (7-16); BUN 9 mg/dL (7-18); CHLORIDE 96 mmol/L (98-107); CO2 25 mmol/L (21-32); GLUCOSE 140 mg/dL (70-99); SODIUM 134 mmol/L (136-145)
[2017-12-26 13:30] LABS: APTT 32.7 Seconds (25.0-31.3); INR 1.2; PROTIME 11.4 Seconds (9.20-11.50)
[2017-12-26 13:34] LABS: POTASSIUM 2.2 mmol/L (3.5-5.1)
[2017-12-26 13:39] LABS: ALBUMIN 3.1 g/dL (3.4-5.0); ALKALINE PHOSPHATASE 81 U/L (46-116); NT-PRO BRAIN NAT PEPTIDE 267 pg/mL (<300); SGOT 13 U/L (15-37); SGPT 20 U/L (30-65); TOTAL BILIRUBIN 0.8 mg/dL (<0.1-1.0); TOTAL PROTEIN 7.8 g/dL (6.4-8.2); TROPONIN-I LEVEL <0.06 ng/mL (<0.06)
[2017-12-26 13:55] LABS: ABSOLUTE LYMPHOCYTES 2.6 thou/uL (0.8-5.3); ABSOLUTE MONOCYTES 1.2 thou/uL (0.0-1.2); ABSOLUTE NEUTROPHILS 8.6 thou/uL (1.6-8.1); ATYPICAL LYMPHS 1 %; METAMYELOCYTES 1 %
[2017-12-26 13:57] LABS: ANISOCYTOSIS 1+; HYPOCHROMASIA Occasional; PLATELET ESTIMATE ADEQUATE; POLYCHROMASIA Occasional
[2017-12-26 13:58] LABS: TEARDROPS Occasional
--- NOTE | 2017-12-26 14:30 | EKG ---
[place] [address] ELECTROCARDIOGRAM REPORT Name: KRISTAL FOX Room: [place] [address] ADM IN .R.#: [id number] Admission: 12/26/17 Attend Phys: Otilia Mcguire MD Discharge: Date of : 53 Report #: [id number] THIS REPORT FOR: //name// [facility] Test Date: 2017-12-26 Test Time: 12:56:25 Pat Name: KRISTAL FOX Department: Room: [facility] Gender: F Rn Medication: Lily BREWER : 1955 Requested By: Arnulfo Smith Order Number: [id number] MD: Yonny Ruby Measurements Intervals [place] Rate: 93 P: 49 MT: 161 QRS: 74 QRSD: 92 T: 47 QT: 386 QTc: 481 Interpretive Statements Sinus rhythm Minimal ST depression, inferior leads Compared to ECG 11/27/2017 11:25:03 ST (T wave) deviation now present Electronically Signed On 12-26-2017 14:30:40 CDT by Yonny Ruby [email or web address] <ELECTRONICALLY SIGNED> By: Yonny Ruby MD, FAC 12/26/17 1430 1256 1256 Yonny Ruby MD, [facility] /EPI
[2017-12-26 17:22] VITALS: BP 123/64
[2017-12-26 17:28] VITALS: BP 132/61
--- NOTE | 2017-12-26 18:50 | NUR ---
RECEIVED REPORT FROM [facility]IVE IN ER. PT ARRIVED ON TELE FLOOR AROUND 1722. PT A&O X4. VSS, SLIGHTLY FEBRILE AT 99.2. O2 SAT 93% ON RA. PT COUGHING AND WHEEZING. SOB WITH EXERTION. PT ORIENTED TO ROOM, BED AND CALL LIGHT. PT COMMUNICATES UNDERSTANDING. SUPERVISOR COFFEE PLACED TRACING SR. ADMISSION ASSESSMENT, HISTORY AND EDUCATION COMPLETED CHARTED. PT GIVEN BOX LUNCH FOR DINNER, PT EATING AND DRINKING WITHOUT ISSUE. IV TO LEFT HAND SALINE LOCKED AND INTACT. PT REPORTS BURNING SENSATION IN CHEST WITH COUGHING THAT GETS BETTER AFTER BREATHING TREATMENTS. PT STATES SHE DOES NOT NEED PAIN MEDICATION AT THIS TIME. SON AT BEDSIDE BRIEFLY AND THEN LEFT. PT UP AD BILLY TO BATHROOM, WEARS INCONTINENT BRIEFS. POTASSIUM REPLACED X1 DOSE ON TELE, 1 DOSE IN ER WELL. PT REPORTS SHE IS URINATING BETTER SINCE RECEIVING ANTIBIOTICS IN THE ER, STATES SHE HAD BEEN HAVING TROUBLE URINATING FOR THE LAST SEVERAL DAYS. PT REPORTS SHE CANNOT AFFORD HER BLOOD THINNER AND HAS NOT BEEN TAKING IT. PT ALSO REPORTS SHE HAS BEEN TAKING PENICILLIN FOUR TIMES A DAY, BUT COULD NOT REMEMBER THE DOSE. FAMILY TO BRING IN BOTTLE IF ABLE. PT CURRENTLY RESTING IN BED. LOW FALL RISK PRECAUTIONS IN PLACE. CALL LIGHT IS WITHIN REACH, ALL NEEDS MET AT THIS TIME. HOURLY ROUNDING PERFORMED.
[2017-12-26 20:00] VITALS: BP 117/74
[2017-12-27] VITALS (7 sets, daily range): BP systolic 105–145; BP diastolic 54–78
[2017-12-27 03:06] LABS: HEMATOCRIT 30.1 % (37.0-47.0); HEMOGLOBIN 10.1 gm/dL (12.0-15.0); MCH 27.6 pg (26.0-34.0); MCHC 33.4 g/dL (28.0-37.0); MCV 82.6 fL (80.0-100.0); MPV 6.7 fl. (7.2-11.1); RBC 3.65 mil/uL (4.20-5.00); RDW-CV 19.1 % (10.5-14.5); WBC 5.8 thou/uL (4.0-11.0)
[2017-12-27 03:15] LABS: CREATININE 1.3 mg/dL (0.6-1.3); MAGNESIUM 1.4 mg/dL (1.8-2.4); POTASSIUM 3.1 mmol/L (3.5-5.1)
--- NOTE | 2017-12-27 04:06 | NUR ---
ASSUMED CARE OF PT AT 1930, NURSING ASSESSMENT COMPLETED AT START OF SHIFT. PT VOICED NO CONCERNS. HOURLY ROUNDING COMPLETED, DENIES PAIN. TRACING SINUS RHYTHM ON TELE MONITOR. CALL LIGHT REMAINS WITHIN REACH.
--- NOTE | 2017-12-27 07:45 | NUR ---
ASSUMED CARE OF PT ASSESSED AND DOCUMENTED. PT IS ON CARDIAC MONITER TRACING SR. PT IS A&O WITH NO C/O PAIN. PT IS ON 2L OF 02. VSS WNL. PT IS AFEBRILE. BED IS IN LOW POSTION CALL LIGHT IS IN REACH.WM.
[2017-12-27 20:23] LABS: MAGNESIUM 1.4 mg/dL (1.8-2.4); POTASSIUM 3.3 mmol/L (3.5-5.1)
--- NOTE | 2017-12-28 03:16 | NUR ---
PATIENT RESTED IN BED. PATIENT DID NOT SHOW SIGNS OF DISTRESS, NO ACUTE CHANGES. PATIENT RECEIVED ELECTROLYE REPLACEMENT. PATIENT WILL CONTINUE ANTIBIOTIC TREATMENT. FALL PRECAUTIONS IN PLACE, BED ALARM ON, HOURLY ROUNDING OBSERVED, CALL LIGHT WITHIN REACH.
[2017-12-28 04:00] VITALS: BP 144/78
--- NOTE | 2017-12-28 06:50 | NUR ---
PATIENT COMPLAIN OF CHEST PAIN, STAT EKG ORDER. CHEST PAIN RELIEVED WITH NITRO TIMES 1.
--- NOTE | 2017-12-28 07:08 | NUR ---
DOCTOR WAS NOTIFIED OF PATIENT CHEST PAIN, SEE ORDERS.
[2017-12-28 07:17] LABS: HEMATOCRIT 27.7 % (37.0-47.0); HEMOGLOBIN 9.3 gm/dL (12.0-15.0); MCH 27.8 pg (26.0-34.0); MCHC 33.7 g/dL (28.0-37.0); MCV 82.5 fL (80.0-100.0); RBC 3.36 mil/uL (4.20-5.00); RDW-CV 19.2 % (10.5-14.5); WBC 9.3 thou/uL (4.0-11.0)
[2017-12-28 07:25] LABS: ANION GAP 13 mmol/L (7-16); BUN 19 mg/dL (7-18); CALCIUM 7.8 mg/dL (8.5-10.1); CHLORIDE 107 mmol/L (98-107); CO2 20 mmol/L (21-32); CREATININE 1.1 mg/dL (0.6-1.3); GLUCOSE 181 mg/dL (70-99); POTASSIUM 4.2 mmol/L (3.5-5.1); SODIUM 140 mmol/L (136-145)
[2017-12-28 07:33] LABS: TROPONIN-I LEVEL <0.06 ng/mL (<0.06)
[2017-12-28 08:00] VITALS: BP 152/89
[2017-12-28 11:32] VITALS: BP 168/93
--- NOTE | 2017-12-28 13:29 | EKG ---
[place] [address] ELECTROCARDIOGRAM REPORT Name: DOMINIQUEKRISTAL Room: [address] ADM IN M.R.#: [id number] Admission: 12/26/17 Attend Phys: Otilia Mcguire MD Discharge: Date of : 53 Report #: [id number] THIS REPORT FOR: //name// [facility] Test Date: 2017-12-28 Test Time: 06:54:20 Pat Name: KRISTAL FOX Department: Room: [address] Gender: F Timing Adjuster: [facility] : 1955 Requested By: Otilia Mcguire Order Number: [id number] Reading MD: Shamar Barrera Measurements Intervals [place] Rate: 66 P: 51 ID: [id number] QRS: 69 QRSD: 90 T: 36 QT: 437 QTc: 458 Interpretive Statements Sinus rhythm Compared to ECG 12/26/2017 12:56:25 ST (T wave) deviation no longer present Electronically Signed On 12-28-2017 13:29:17 CDT by Shamar Barrera [email or web address] <ELECTRONICALLY SIGNED> By: Kermit Barrera MD, [facility] 12/28/17 [id number] [phone] Kermit Barrera MD, [facility] /EPI
[2017-12-28 15:27] VITALS: BP 120/78
--- NOTE | 2017-12-28 17:55 | NUR ---
PT HAS RESTED IN HER ROOM THIS SHIFT TALKING ON THE PHONE AND WATCHING TV. SHE HAS HAD NO S OR SX OF ADVERSE REACTION TO ABT. PT IS PROBABLE TO D/C HOME TOMORROW. EDUCATION GIVEN ON DEMAND. HOURLY ROUNDING COMPLETE.
[2017-12-28 20:00] VITALS: BP 145/93
[2017-12-29 00:04] VITALS: BP 149/81
[2017-12-29 04:14] VITALS: BP 126/75
--- NOTE | 2017-12-29 07:06 | NUR ---
PATIENT RESTED IN BED, NO SIGNS OF DISTRESS, NO ACUTE CHANGES. PATIENT DID NOT COMPLAIN OF SOB BUT RESPIRATION RATE PEAK IN LOW 30'S. OXYGEN INCREASE TO 3 LITERS, RESPIRATROY RATE DECREASED TO WITHIN NORMAL LIMITS. FALL PRECAUTIONS IN PLACE, BED ALARM ON, HOURLY ROUNDING OBSERVED, CALL LIGHT WITHIN REACH.
[2017-12-29 08:00] VITALS: BP 179/84
[2017-12-29 12:07] VITALS: BP 169/81
--- NOTE | 2017-12-29 14:20 | NUR ---
CM ASSESSMENT: Pt is A&O. Resides at home with her dtr. Independent with ADLs. Pt dc from the hospital to [facility] on 11/27/17. Pt stated that she returned home on 12/13/17 with [facility]. Pt wants to resume HH at [facility]. Pt has home neb. No home o2. Consult received regarding Xarelto cost, Pt stated that her insurance does not cover the Rx and would cost $147 to fill, Pt stated that she cannot afford this medication. Pt also informed that her Cymbalta costs $47 and she can't afford this Rx either. Updated nurse. Pt's goal is to return home once medically stable for dc.
[2017-12-29 15:15] VITALS: BP 164/88
--- NOTE | 2017-12-29 15:36 | NUR ---
RECEIVED REPORT AND ASSUMED CARE AT 0730. VSS. CARDIAC MONITORING IN PLACE. PT REPORTS PAIN IN HER BACK FROM COUGHING. PT USING HEATING PAD FOR RELIEF.PT REQUESTED SOMETHING FOR HER COUGH, REQUEST SENT TO [facility] ORDERED. PT MAGNESIUM WAS LOW THIS AM, REPLACEMENT GIVEN X 2 DOSES. PLAN OF CARE DISCUSSED WITH PT, PT VERBALIZED UNDERSTANDING. ASSESSMENT COMPLETED CHARTED. BED IN LOWEST POSITION, BED ALARM ON, CALL LIGHT WITHIN REACH. PT ON 3L NC, UP SBA TO BATHROOM. WILL CONTINUE TO MONITOR FOR REMAINDER OF THE SHIFT,
[2017-12-30] VITALS: BP 164/77
--- NOTE | 2017-12-30 03:10 | NUR ---
ALERT AND ORIENTED X 3. UP TO BR WIOTH SBA. DENIES COMPLAINTS OF SOA, PAIN OR DISCOMFORT. NO SIGN OF DISTRESS. SR ON THE MONITOR. BED IN LOW POSITION, CALL LIGHT IN REACH. WILL PROCEED WITH CURRENT PLAN OF CARE AT THIS TIME.
[2017-12-30 03:43] VITALS: BP 169/86
[2017-12-30 07:30] VITALS: BP 181/85
[2017-12-30] MEDS ORDERED: DOXYCYCLINE 10100 MG PO (09:50)
[2017-12-30] MEDS ORDERED: PREDNISONE 10 M10 MG PO (09:50)
[2017-12-30] MEDS ORDERED: XARELTO20 MG PO (10:25)
--- NOTE | 2017-12-30 11:45 | NUR ---
Pt discharging to home today. Spoke with Dr Mcguire, plan is for Pt to remain on the Xarelto, cardiology provided Pt with a 30 day supply, Pt is to follow up with PCP to either continue on Xarelto or switch to a different med. Nurse CM cost Pradaxa and Eliquios, Pradaxa is $142, Eliquois is $142, Pt cannot afford either. Xarelto samples provided to Pt. CM provided Pt with a $18.59 coupon card for her Cymbalta, CM explained that she would need to go to a [employer] in order to have the coupon honored, CM informed that there is a [employer] in [place]. Cab voucher provided for [place] transportation.
[2017-12-30 14:42] VITALS: BP 181/85
--- NOTE | 2017-12-30 15:16 | NUR ---
DISCHARGE ORDERS GIVEN. PAPERWORK COMPLETED BY NURSING. IV AND CARDIAC MONITORING DISCONTINUED. PT DENIES ANY COMPLAINTS OF PAIN. PT GIVEN NEW PRESCRIPTIONS. NURSING CALLED IN NEW XARELTO TO PT PHARMACY, [facility], SPOKE WITH WERO. DISCUSSED PAPERWORK WITH PT, VERBALIZED UNDERSTANDING. ALL QUESTIONS AND CONCERNS ADDRESSED AT THIS TIME. PT BELONGINGS GATHERED AND GIVEN TO PT. CAB VOUCHER GIVEN AND CAB COMPLANY CALLED. PT ESCORTED BY NURSING STAFF TO CAB FOR TRANSPORT HOME.
== END 2017-12-30 15:25 | disposition home or self-care (01) | DRG 177 ==
LOC: M.ERS 12:46 → M.TBA-ER 13:47 → M.2W 13:47
PROVIDERS: Emergency Medicine; ADMIT Internal Medicine
DX: J15.6 Pneumonia due to other Gram-negative bacteria (principal); J96.00 Acute respiratory failure, unspecified whether with hypoxia or hypercapnia; J44.0 Chronic obstructive pulmonary disease with (acute) lower respiratory infection; R65.10 Systemic inflammatory response syndrome (SIRS) of non-infectious origin without acute organ dysfunction; I11.0 Hypertensive heart disease with heart failure; I50.9 Heart failure, unspecified; M19.90 Unspecified osteoarthritis, unspecified site; G43.909 Migraine, unspecified, not intractable, without status migrainosus; K21.9 Gastro-esophageal reflux disease without esophagitis; E87.6 Hypokalemia; Y95 Nosocomial condition; F32.9 Major depressive disorder, single episode, unspecified; I25.10 Atherosclerotic heart disease of native coronary artery without angina pectoris; H60.93 Unspecified otitis externa, bilateral; I48.91 Unspecified atrial fibrillation; E03.9 Hypothyroidism, unspecified; Z86.718 Personal history of other venous thrombosis and embolism; Z90.49 Acquired absence of other specified parts of digestive tract; Z79.01 Long term (current) use of anticoagulants; Z79.899 Other long term (current) drug therapy; Z88.8 Allergy status to other drugs, medicaments and biological substances

== ENCOUNTER → 2018-03-04 | Outpatient (CLI) | payer OTHER ==
[~2018-03-04] VITALS: Ht 157.5 cm; Wt 68.9 kg
[~2018-03-04] MED LIST changes: +DOXYCYCLINE 10100 MG PO; +XARELTO20 MG PO
[2018-03-04 15:42] LABS: RBC ND mil/uL (4.20-5.00); WBC ND thou/uL (4.0-11.0)
[2018-03-04 15:43] LABS: HEMATOCRIT ND % (37.0-47.0); HEMOGLOBIN ND gm/dL (12.0-15.0)
[2018-03-04 15:44] LABS: MCH ND pg (26.0-34.0); MCV ND fL (80.0-100.0)
[2018-03-04 15:45] LABS: MCHC ND g/dL (28.0-37.0); PLATELET COUNT* ND thou/uL (150-400); RDW-CV ND % (10.5-14.5)
[2018-03-04 15:46] LABS: MPV ND fl. (7.2-11.1)
[2018-03-04 15:49] VITALS: BP 125/65
[2018-03-04 16:16] LABS: APTT 24.7 Seconds (25.0-31.3); CALCIUM 9.7 mg/dL (8.5-10.1); CREATININE 0.9 mg/dL (0.6-1.3); PROTIME 10.1 Seconds (9.20-11.50)
[2018-03-04 16:20] LABS: ALBUMIN 3.5 g/dL (3.4-5.0); TOTAL BILIRUBIN 0.5 mg/dL (<0.1-1.0); TOTAL PROTEIN 7.1 g/dL (6.4-8.2)
[2018-03-04 16:28] LABS: POTASSIUM 2.7 mmol/L (3.5-5.1)
[2018-03-04 17:02] LABS: HEMATOCRIT 35.1 % (37.0-47.0); HEMOGLOBIN 11.9 gm/dL (12.0-15.0); MCH 27.3 pg (26.0-34.0); MCHC 33.8 g/dL (28.0-37.0); MCV 80.7 fL (80.0-100.0); MPV 7.7 fl. (7.2-11.1); RBC 4.35 mil/uL (4.20-5.00); RDW-CV 15.5 % (10.5-14.5); WBC 6.5 thou/uL (4.0-11.0)
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
== END | disposition home or self-care (01) ==
LOC: M.INT 13:51
PROVIDERS: Surgery
DX: Z45.2 Encounter for adjustment and management of vascular access device (principal); K50.918 Crohn's disease, unspecified, with other complication; I11.0 Hypertensive heart disease with heart failure; I50.9 Heart failure, unspecified; I25.10 Atherosclerotic heart disease of native coronary artery without angina pectoris; J44.9 Chronic obstructive pulmonary disease, unspecified; E03.9 Hypothyroidism, unspecified; M19.90 Unspecified osteoarthritis, unspecified site; F32.9 Major depressive disorder, single episode, unspecified; G43.909 Migraine, unspecified, not intractable, without status migrainosus; K21.9 Gastro-esophageal reflux disease without esophagitis; Z90.49 Acquired absence of other specified parts of digestive tract; Z98.890 Other specified postprocedural states; Z79.899 Other long term (current) drug therapy; Z88.8 Allergy status to other drugs, medicaments and biological substances

== ENCOUNTER → 2018-04-16 | Outpatient (CLI) | payer OTHER ==
[2018-04-16 13:00] VITALS: BP 131/70
--- NOTE | 2018-04-16 13:30 | NUR ---
PT WAS DISCHARGED HOME AFTER HER LABS WERE DRAWN OUT OF THE PORT A CATH. NO CO OF PAIN OR NAUSEA. WILL CONTINUE TO MONITOR.
== END ==
LOC: M.INFUS 12:43
DX: Z45.2 Encounter for adjustment and management of vascular access device (principal); E03.9 Hypothyroidism, unspecified

== ENCOUNTER → 2018-05-13 | Outpatient (CLI) | payer OTHER ==
--- NOTE | 2018-05-13 13:51 | NUR ---
ARRIVED AMBULATORY. MADE SELF COMFORTABLE IN RECLINER. PORT A CATH ACCESSED WITHOUT DIFFICULTY. GOOD BRISK BLOOD RETURN NOTED AND FLUSHED WITH EASE. PORT FLUSHED AND DEACCESSED. DENEIS QUESTIONS OR NEEDS AT DISCHARGE.
== END ==
LOC: M.INFUS 04:26
DX: Z45.2 Encounter for adjustment and management of vascular access device (principal); E03.9 Hypothyroidism, unspecified

== ENCOUNTER → 2018-07-10 | Outpatient (CLI) | payer OTHER | LOC: M.INFUS 13:12 | DX: Z45.2 Encounter for adjustment and management of vascular access device (principal); E03.9 Hypothyroidism, unspecified ==

== ENCOUNTER → 2018-08-31 | Outpatient (CLI) | payer OTHER | LOC: M.INFUS 01:03 | DX: E03.9 Hypothyroidism, unspecified (principal) ==

== ENCOUNTER → 2018-10-12 | Outpatient (CLI) | payer OTHER, MEDICAID | LOC: M.INFUS 09-28 13:00 | DX: E03.9 Hypothyroidism, unspecified (principal) ==

== ENCOUNTER → 2018-12-25 | Outpatient (CLI) | payer OTHER, MEDICAID ==
--- NOTE | 2018-12-25 10:54 | NUR ---
ARRIVED AMBULATORY. MADE SLEF COMFORTABLE. PORT A CATH ACCESSED WITH OUT DIFFICULTY. GOOD BRISK BLOOD RETURN NOTED AND FLUSHED WITH EASE. PORT FLUSHED AND DEACCESSED. TOLERATED WELL. DENIES NEEDS AT DISCHARGE.
== END ==
LOC: M.INFUS 05:39
DX: Z45.2 Encounter for adjustment and management of vascular access device (principal); E03.9 Hypothyroidism, unspecified

== ENCOUNTER → 2019-03-23 | Outpatient (CLI) | payer OTHER, MEDICAID ==
--- NOTE | 2019-03-23 11:15 | NUR ---
ARRIVED AMBULATORY. MADE SELF COMFORTABLE IN RECLINER. PORT A CTH INTACT AND FREE FROM SIGN OF INFECTION. PORT ACCESSED WITH EASE. GOOD BRISK BLOOD RETURN NOTED AND FLUSHED WITH EASE. PORT FLUSHED AND THEN DEACCESSED. TOLERATED WELL. DENIES QUESTIONS OR NEEDS AT DISCHARGE.
== END ==
LOC: M.INFUS 10:50
DX: Z45.2 Encounter for adjustment and management of vascular access device (principal); K50.90 Crohn's disease, unspecified, without complications

== ENCOUNTER → 2019-06-09 | Outpatient (CLI) | payer OTHER, MEDICAID ==
[2019-06-09 13:02] VITALS: BP 122/67
== END ==
LOC: M.INFUS 04:56
DX: Z45.2 Encounter for adjustment and management of vascular access device (principal); K50.90 Crohn's disease, unspecified, without complications; E03.9 Hypothyroidism, unspecified